=== PATIENT | female | born 1960 | race African-American/Black ===

== ENCOUNTER 2018-04-02 17:34 | Emergency (ER) | payer OTHER ==
[~2018-04-02] VITALS: Ht 157.5 cm; Wt 81.6 kg
[~2018-04-02 17:34] MED LIST: ALPR0.25 PO; ASPI-630 PO; HYDR-971 PO
[2018-04-02 18:29] LABS: BILIRUBIN,URINE NEGATIVE (NEG); CLARITY,URINE CLEAR; COLOR,URINE YELLOW; NITRITE,URINE NEGATIVE (NEG); PH,URINE 5.5; PROTEIN,URINE NEGATIVE (NEG-TRACE); UROBILINOGEN,URINE 0.2 mg/dL (0.2 mg/dL)
[2018-04-02] MEDS ORDERED: IV NORMAL SALINE 1000ML BAG 1,000 ML IV ONE (18:30)
[2018-04-02] MEDS ORDERED: DICYCLOMINE HCL 10 MG CAPSULE PO ONE (18:30)
[2018-04-02] MEDS ORDERED: ONDANSETRON PF 4 MG/2 ML VIAL. IV ONE (18:30)
[2018-04-02] MEDS ORDERED: KETOROLAC 30 MG/ML VIAL. IV ONE (18:30)
--- NOTE | 2018-04-02 18:32 | PHYS DOC ---
Past Medical History Past Medical History: Anxiety Past Surgical History: Other Additional Past Surgical Histo: DnC Alcohol Use: None Drug Use: None Adult General Chief Complaint Chief Complaint: ABDOMINAL PAIN HPI HPI Patient is a 57 year old female who presents with 6-10 out of 10 generalized abdominal pain described as cramping that has been going on intermittently with nausea vomiting and diarrhea for the last 1 week. Patient denies any fever. Denies any hematemesis or melena. Review of Systems Review of Systems Constitutional: Denies fever or chills [] Eyes: Denies change in visual acuity, redness, or eye pain [] HENT: Denies nasal congestion or sore throat [] Respiratory: Denies cough or shortness of breath [] Cardiovascular: No additional information not addressed in HPI [] GI: Reports generalized abdominal pain with nausea vomiting and diarrhea : Denies dysuria or hematuria [] Musculoskeletal: Denies back pain or joint pain [] Integument: Denies rash or skin lesions [] Neurologic: Denies headache, focal weakness or sensory changes [] All other systems were reviewed and found to be within normal limits, except as documented in this note. Current Medications Current Medications Current Medications Medications (Trade) Dose Ordered Sig/Willy Start Time Stop Time Status Last Admin Dose Admin Dicyclomine HCl (Bentyl) 20 mg 1X ONCE 04/02/18 18:30 04/02/18 18:31 DC 04/02/18 19:20 20 MG Iohexol (Omnipaque 300 Mg/ml) 75 ml 1X ONCE 04/02/18 19:15 04/02/18 19:16 UNV Ketorolac Tromethamine (Toradol 30mg Vial) 30 mg 1X ONCE 04/02/18 18:30 04/02/18 18:31 DC 04/02/18 19:20 30 MG Ondansetron HCl (Zofran) 4 mg 1X ONCE 04/02/18 18:30 04/02/18 18:31 DC 04/02/18 19:20 4 MG Sodium Chloride 1,000 ml @ 1,000 mls/hr 1X ONCE 04/02/18 18:30 04/02/18 19:29 DC 04/02/18 19:21 1,000 MLS/HR Allergies Allergies Allergies Coded Allergies Type Severity Reaction Last Updated Verified fish derived Allergy Severe Anaphylaxis 07/01/14 Yes shellfish derived Allergy Severe Anaphylaxis 07/01/14 Yes Penicillins Allergy Mild Rash 09/03/13 Yes Physical Exam Physical Exam Constitutional: Well developed, well nourished, no acute distress, non-toxic appearance. [] HENT: Normocephalic, atraumatic, bilateral external ears normal, oropharynx moist, no oral exudates, nose normal. [] Eyes: PERRLA, EOMI, conjunctiva normal, no discharge. [] Neck: Normal range of motion, no tenderness, supple, no stridor. [] Cardiovascular:Heart rate regular rhythm, no murmur [] Lungs & Thorax: Bilateral breath sounds clear to auscultation [] Abdomen: Bowel sounds normal, soft, no tenderness, no masses, no pulsatile masses. [] Skin: Warm, dry, no erythema, no rash. [] Back: No tenderness, no CVA tenderness. [] Extremities: No tenderness, no cyanosis, no clubbing, ROM intact, no edema. [] Neurologic: Alert and oriented X 3, normal motor function, normal sensory function, no focal deficits noted. [] Psychologic: Affect normal, judgement normal, mood normal. [] Current Patient Data Vital Signs Vital Signs Date Time Temp Pulse Resp B/P (MAP) Pulse Ox O2 Delivery O2 Flow Rate FiO2 04/02/18 18:10 97.4 68 20 135/65 (88) 98 Room Air 97.4 Lab Values Laboratory Tests Test 04/02/18 18:16 04/02/18 18:30 Urine Collection Type Void Urine Color Yellow Urine Clarity Clear Urine pH 5.5 Urine Specific [place] 1.020 Urine Protein Negative mg/dL (NEG-TRACE) Urine Glucose (UA) Negative mg/dL (NEG) Urine Ketones (Stick) Negative mg/dL (NEG) Urine Blood Negative (NEG) Urine Nitrite Negative (NEG) Urine Bilirubin Negative (NEG) Urine Urobilinogen Dipstick 0.2 mg/dL (0.2 mg/dL) Urine Leukocyte Esterase Negative (NEG) Urine RBC Occ /HPF (0-2) Urine WBC Occ /HPF (0-4) Urine Squamous Epithelial Cells Mod /LPF Urine Bacteria Few /HPF (0-FEW) Urine Mucus Mod /LPF White Blood Count 6.6 x10^3/uL (4.0-11.0) Red Blood Count 5.10 x10^6/uL (3.50-5.40) Hemoglobin 11.8 g/dL (12.0-15.5) L Hematocrit 36.3 % (36.0-47.0) Mean Corpuscular Volume 71 fL (79-100) L Mean Corpuscular Hemoglobin 23 pg (25-35) L Mean Corpuscular Hemoglobin Concent 33 g/dL (31-37) Red Cell Distribution Width 16.2 % (11.5-14.5) H Platelet Count 244 x10^3/uL (140-400) Neutrophils (%) (Auto) 38 % (31-73) Lymphocytes (%) (Auto) 50 % (24-48) H Monocytes (%) (Auto) 7 % (0-9) Eosinophils (%) (Auto) 4 % (0-3) H Basophils (%) (Auto) 1 % (0-3) Neutrophils # (Auto) 2.5 x10^3uL (1.8-7.7) Lymphocytes # (Auto) 3.3 x10^3/uL (1.0-4.8) Monocytes # (Auto) 0.5 x10^3/uL (0.0-1.1) Eosinophils # (Auto) 0.3 x10^3/uL (0.0-0.7) Basophils # (Auto) 0.1 x10^3/uL (0.0-0.2) Platelet Estimate Adequate (ADEQUATE) Anisocytosis Slight Microcytosis Slight Sodium Level 143 mmol/L (136-145) Potassium Level 3.7 mmol/L (3.5-5.1) Chloride Level 105 mmol/L (98-107) Carbon Dioxide Level 29 mmol/L (21-32) Anion Gap 9 (6-14) Blood Urea Nitrogen 12 mg/dL (7-20) Creatinine 0.9 mg/dL (0.6-1.0) Estimated GFR (Cockcroft-Gault) 77.5 BUN/Creatinine Ratio 13 (6-20) Glucose Level 97 mg/dL (70-99) Calcium Level 9.0 mg/dL (8.5-10.1) Total Bilirubin 0.8 mg/dL (0.2-1.0) Aspartate Amino Transferase (AST) 15 U/L (15-37) Alanine Aminotransferase (ALT) 16 U/L (14-59) Alkaline Phosphatase 82 U/L (46-116) Total Protein 7.5 g/dL (6.4-8.2) Albumin 3.6 g/dL (3.4-5.0) Albumin/Globulin Ratio 0.9 (1.0-1.7) L Lipase 73 U/L (73-393) Laboratory Tests 04/02/18 18:30 Laboratory Tests 04/02/18 18:30 EKG EKG [] Radiology/Procedures Radiology/Procedures []PROCEDURE: CT ABDOMEN PELVIS WO CONTRAST CT scan of the abdomen and pelvis without contrast 04/02/2018 CLINICAL HISTORY: Mid abdominal pain with nausea and diarrhea for one week. One or more of the following individualized dose reduction techniques were utilized for this study: 1. Automated exposure control. 2. Adjustment of the mA and/or kV according to patient size. 3. Use of iterative reconstruction technique. FINDINGS: Images through the lung bases are within normal limits. The liver, spleen, pancreas, adrenal glands and both kidneys are within normal limits. The abdominal aorta tapers normally. Mild atherosclerotic calcification abdominal aorta is seen. The gallbladder is slightly contracted. No free fluid or free air is seen within the abdomen. There is no evidence of bowel obstruction. The appendix is well-visualized and is within normal limits. Images through the pelvis demonstrate the urinary bladder to be contracted. Calcifications are seen within the pelvis consistent with phleboliths. No free fluid is seen. Degenerative changes are seen involving the lower thoracic and throughout the lumbar spine and both hips. IMPRESSION: No acute abnormality is seen. Electronically signed by: Dayday Coulter MD (04/02/2018 8:17 PM) [facility] DICTATED and SIGNED BY: DAYDAY COULTER MD DATE: 04/02/182009 Course & Med Decision Making Course & Med Decision Making Pertinent Labs and Imaging studies reviewed. (See chart for details) This is a 57-year-old female patient presented to the ED today with generalized abdominal pain nausea vomiting and diarrhea for one week. Patient's labs are negative for any acute findings, CT of the abdomen and pelvic is negative for any acute findings. Patient is not febrile. She was given a GI doctor for follow -up as an outpatient. Discharged with acyclovir. She states she feels much better if the ED. In the ED she was given Zofran, a liter of fluid, Protonix and dicyclomine. Dragon Disclaimer Dragon Disclaimer This electronic medical record was generated, in whole or in part, using a voice recognition dictation system. Departure Departure Impression: Primary Impression: Abdominal pain Additional Impression: Vomiting and diarrhea Disposition: HOME, SELF-CARE Condition: STABLE Referrals: JESICA DE JESUS MD (PCP) SOL CANDELARIO MD follow up in 1 week Patient Instructions: Diarrhea, Nausea and Vomiting, [id number] Additional Instructions: You were evaluated in the emergency room for nausea vomiting diarrhea with abdominal pain. We could not find any acute cause for your symptoms. We provided you a GI doctor. Contact the office and follow-up with them as soon as possible. Scripts Ondansetron (ZOFRAN ODT) 4 Mg Tab.rapdis 1 TAB SL Q8HRS, #15 TAB Prov: BARBARA HAMEED APRN 04/02/18 Dicyclomine Hcl (DICYCLOMINE HCL) 20 Mg Tablet 1 TAB PO TID, #30 TAB 1 Refill Prov: BARBARA HAMEED APRN 04/02/18 Problem Qualifiers Primary Impression: Abdominal pain Abdominal location: unspecified location Qualified Codes: R10.9 - Unspecified abdominal pain BARBARA HAMEED APRN Apr 02, 2018 18:32
[2018-04-02 18:40] LABS: BASO # 0.1 x10^3/uL (0.0-0.2); BASO % 1 % (0-3); EOS # 0.3 x10^3/uL (0.0-0.7); EOS % 4 % (0-3); HEMATOCRIT 36.3 % (36.0-47.0); HEMOGLOBIN 11.8 g/dL (12.0-15.5); LYMPH # 3.3 x10^3/uL (1.0-4.8); LYMPH % 50 % (24-48); MEAN CORPUSCULAR HEMOGLOBIN 23 pg (25-35); MEAN CORPUSCULAR HGB CONC 33 g/dL (31-37); MEAN CORPUSCULAR VOLUME 71 fL (79-100); MONO # 0.5 x10^3/uL (0.0-1.1); MONO % 7 % (0-9); NEUT # 2.5 x10^3uL (1.8-7.7); NEUT % 38 % (31-73); PLATELET COUNT 244 x10^3/uL (140-400); RED CELL DISTRIBUTION WIDTH 16.2 % (11.5-14.5); WHITE BLOOD COUNT 6.6 x10^3/uL (4.0-11.0)
[2018-04-02 18:53] LABS: CREATININE 0.9 mg/dL (0.6-1.0); GFR 77.5; POTASSIUM 3.7 mmol/L (3.5-5.1)
[2018-04-02 18:59] VITALS: BP 145/77
[2018-04-02 18:59] LABS: ALBUMIN 3.6 g/dL (3.4-5.0); ALBUMIN/GLOBULIN RATIO 0.9 (1.0-1.7); TOTAL BILIRUBIN 0.8 mg/dL (0.2-1.0); TOTAL PROTEIN 7.5 g/dL (6.4-8.2)
[2018-04-02 19:00] LABS: BACTERIA,URINE FEW /HPF (0-FEW); RBC,URINE OCC /HPF (0-2); SQUAMOUS EPITHELIAL CELL,UR MOD /LPF; WBC,URINE OCC /HPF (0-4)
[2018-04-02] MEDS ORDERED: IOHEXOL 300 MG/ML 100ML VIAL. IV ONE (19:15)
[2018-04-02 19:27] LABS: MICROCYTOSIS SLIGHT; PLT ESTIMATE ADEQUATE (ADEQUATE)
[2018-04-02 19:28] LABS: ANISOCYTOSIS SLIGHT
--- NOTE | 2018-04-02 20:21 | RAD ---
CT scan of the abdomen and pelvis without contrast 04/02/2018 CLINICAL HISTORY: Mid abdominal pain with nausea and diarrhea for one week. One or more of the following individualized dose reduction techniques were utilized for this study: 1. Automated exposure control. 2. Adjustment of the mA and/or kV according to patient size. 3. Use of iterative reconstruction technique. FINDINGS: Images through the lung bases are within normal limits. The liver, spleen, pancreas, adrenal glands and both kidneys are within normal limits. The abdominal aorta tapers normally. Mild atherosclerotic calcification abdominal aorta is seen. The gallbladder is slightly contracted. No free fluid or free air is seen within the abdomen. There is no evidence of bowel obstruction. The appendix is well-visualized and is within normal limits. Images through the pelvis demonstrate the urinary bladder to be contracted. Calcifications are seen within the pelvis consistent with phleboliths. No free fluid is seen. Degenerative changes are seen involving the lower thoracic and throughout the lumbar spine and both hips. IMPRESSION: No acute abnormality is seen. Electronically signed by: Dayday Coulter MD (04/02/2018 8:17 PM) [facility]
[2018-04-02] MEDS ORDERED: DICY20TA3 PO (21:01)
[2018-04-02] MEDS ORDERED: ONDA4TAB10 SL (21:02)
== END 2018-04-02 21:17 | disposition home or self-care (01) ==
LOC: ER 17:34
DX: R10.84 Generalized abdominal pain (principal); R11.2 Nausea with vomiting, unspecified; R19.7 Diarrhea, unspecified; F41.9 Anxiety disorder, unspecified; Z88.0 Allergy status to penicillin; Z91.013 Allergy to seafood
CPT/HCPCS: 36415; 74176; 80053; 81001; 83690; 85025; 96361; 96374; 96375; 99285; J1885; J2405; J7030; 99284

== ENCOUNTER 2018-04-20 22:01 | Emergency (ER) | payer OTHER ==
[~2018-04-20] VITALS: Ht 157.5 cm; Wt 77.1 kg
[~2018-04-20 22:01] MED LIST changes: +DICY20TA3 PO; +ONDA4TAB10 SL
[2018-04-20] MEDS ORDERED: HYDROcodone/APAP 5/325MG 1 TAB TABLET PO ONE (23:00)
[2018-04-20] MEDS ORDERED: ASPIRIN 325 MG TABLET PO ONE (23:00)
[2018-04-20] MEDS ORDERED: diazePAM 5 MG TABLET PO ONE (23:00)
--- NOTE | 2018-04-20 23:27 | RAD ---
INDICATION: RT ARM HEAVINESS, NO PRIORS, HX DENIES COMPARISON: None. TECHNIQUE: Axial CT images obtained through the head without intravenous contrast. One or more of the following individualized dose reduction techniques were utilized for this examination: 1. Automated exposure control; 2. Adjustment of the mA and/or kV according to patient size; 3. Use of iterative reconstruction technique. FINDINGS: No intracranial hemorrhage. No midline shift. Basal cisterns patent. Ventricles and sulci are unremarkable. No acute osseous abnormality. Orbits and paranasal sinuses unremarkable. IMPRESSION: 1. No acute intracranial hemorrhage. 2. Scattered foci of low-attenuation white matter. Nonspecific but can be seen with chronic small vessel ischemic disease. If there is high clinical concern for acute etiology MRI could better assess acuity. Electronically signed by: Min Linder MD (04/20/2018 11:24 PM) [facility]
[2018-04-20 23:38] LABS: BILIRUBIN,URINE NEGATIVE (NEG); CLARITY,URINE CLEAR; COLOR,URINE YELLOW; NITRITE,URINE NEGATIVE (NEG); PROTEIN,URINE NEGATIVE (NEG-TRACE)
--- NOTE | 2018-04-20 23:40 | PHYS DOC ---
Past Medical History Past Medical History: Anxiety, GERD, P.U.D., Other Additional Past Medical Histor: DDD Past Surgical History: Other Additional Past Surgical Histo: D&C Alcohol Use: Occasionally Drug Use: None Adult General Chief Complaint Chief Complaint: UPPER EXTREMITY PAIN HPI HPI Patient is a 57 year old female with history of anxiety who presents today complaining of 10 out of 10 right shoulder pain radiating to the right upper extremity as well as neck that began at 3 PM. Patient describes the pain as sharp and constant. She states the pain is worse when she tries to move her right arm above her shoulder as well as on certain movements of the neck. Patient denies any known injury. Patient denies taking anything to relieve her pain. Denies any chest pain or shortness of breath. Review of Systems Review of Systems Constitutional: Denies fever or chills [] Eyes: Denies change in visual acuity, redness, or eye pain [] HENT: Denies nasal congestion or sore throat [] Respiratory: Denies cough or shortness of breath [] Cardiovascular: No additional information not addressed in HPI [] GI: Denies abdominal pain, nausea, vomiting, bloody stools or diarrhea [] : Denies dysuria or hematuria [] Musculoskeletal: Reports right shoulder pain Integument: Denies rash or skin lesions [] Neurologic: Denies headache, focal weakness or sensory changes [] All other systems were reviewed and found to be within normal limits, except as documented in this note. Current Medications Current Medications Current Medications Medications (Trade) Dose Ordered Sig/Willy Start Time Stop Time Status Last Admin Dose Admin Acetaminophen/ Hydrocodone Bitart (Lortab 5/325) 1 tab 1X ONCE 04/20/18 23:00 04/20/18 23:01 DC 04/20/18 23:41 1 TAB Aspirin (Yash Aspirin) 325 mg 1X ONCE 04/20/18 23:00 04/20/18 23:01 DC 04/20/18 23:41 325 MG Diazepam (Valium) 5 mg 1X ONCE 04/20/18 23:00 04/20/18 23:01 DC 04/20/18 23:42 5 MG Allergies Allergies Allergies Coded Allergies Type Severity Reaction Last Updated Verified fish derived Allergy Severe Anaphylaxis 07/01/14 Yes shellfish derived Allergy Severe Anaphylaxis 07/01/14 Yes Penicillins Allergy Mild Rash 3/5/14 Yes Physical Exam Physical Exam Constitutional: Well developed, well nourished, no acute distress, non-toxic appearance. [] HENT: Normocephalic, atraumatic, bilateral external ears normal, oropharynx moist, no oral exudates, nose normal. [] Eyes: PERRLA, EOMI, conjunctiva normal, no discharge. [] Neck: Normal range of motion, no tenderness, supple, no stridor. [] Cardiovascular:Heart rate regular rhythm, no murmur [] Lungs & Thorax: Bilateral breath sounds clear to auscultation [] Abdomen: Bowel sounds normal, soft, no tenderness, no masses, no pulsatile masses. [] Skin: Warm, dry, no erythema, no rash. [] Back: No tenderness, no CVA tenderness. [] Extremities: Right shoulder with no obvious deformity. Reproducible pain to the shoulder on range of motion especially abduction. Adequate radial, medial, ulnar sensation to the right upper extremity. +2 right radial pulse. Cap refill less than 2 seconds the right fingers. Neurologic: Alert and oriented X 3, normal motor function, normal sensory function, no focal deficits noted. [] Psychologic: Affect normal, judgement normal, mood normal. [] Current Patient Data Vital Signs Vital Signs Date Time Temp Pulse Resp B/P (MAP) Pulse Ox O2 Delivery O2 Flow Rate FiO2 04/21/18 00:20 98.0 84 18 118/76 (90) 98 Room Air 98.0 Lab Values Laboratory Tests Test 04/20/18 23:25 04/20/18 23:31 04/20/18 23:35 Urine Collection Type Unknown Urine Color Yellow Urine Clarity Clear Urine pH 6.0 Urine Specific [place] 1.025 Urine Protein Negative mg/dL (NEG-TRACE) Urine Glucose (UA) Negative mg/dL (NEG) Urine Ketones (Stick) Negative mg/dL (NEG) Urine Blood Negative (NEG) Urine Nitrite Negative (NEG) Urine Bilirubin Negative (NEG) Urine Urobilinogen Dipstick 1.0 mg/dL (0.2 mg/dL) Urine Leukocyte Esterase Negative (NEG) Urine RBC Rare /HPF (0-2) Urine WBC Rare /HPF (0-4) Urine Squamous Epithelial Cells Mod /LPF Urine Bacteria Few /HPF (0-FEW) Urine Mucus Mod /LPF Urine Opiates Screen Neg (NEG) Urine Methadone Screen Neg (NEG) Urine Barbiturates Neg (NEG) Urine Phencyclidine Screen Neg (NEG) Urine Amphetamine/Methamphetamine Neg (NEG) Urine Benzodiazepines Screen Neg (NEG) Urine Cocaine Screen Neg (NEG) Urine Cannabinoids Screen Neg (NEG) Urine Ethyl Alcohol Neg (NEG) POC Troponin I 0.01 ng/ml (<0.08) POC Hemoglobin 12.9 g/dL (12-15) POC Hematocrit 38 % (36-40) POC Sodium 143 mmol/L (135-145) POC Potassium 4.0 mmol/L (3.5-5.0) POC Chloride 105 mmol/L (98-110) POC Total CO2 26 mmol/L (23-32) Anion Gap 17 mmol/L (6-14) H POC Blood Urea Nitrogen 19 mg/dL (8-26) POC Creatinine 1.0 mg/dL (0.5-1.4) Glucose Level 104 mg/dL (70-99) H POC Ionized Calcium ([place]) 1.15 mmol/L (1.13-1.32) Laboratory Tests 04/20/18 23:35 EKG EKG 22:[address] Lora sinus rhythm heart rate 67 Radiology/Procedures Radiology/Procedures []PROCEDURE: CT HEAD WO CONTRAST INDICATION: RT ARM HEAVINESS, NO PRIORS, HX DENIES COMPARISON: None. TECHNIQUE: Axial CT images obtained through the head without intravenous contrast. One or more of the following individualized dose reduction techniques were utilized for this examination: 1. Automated exposure control; 2. Adjustment of the mA and/or kV according to patient size; 3. Use of iterative reconstruction technique. FINDINGS: No intracranial hemorrhage. No midline shift. Basal cisterns patent. Ventricles and sulci are unremarkable. No acute osseous abnormality. Orbits and paranasal sinuses unremarkable. IMPRESSION: 1. No acute intracranial hemorrhage. 2. Scattered foci of low-attenuation white matter. Nonspecific but can be seen with chronic small vessel ischemic disease. If there is high clinical concern for acute etiology MRI could better assess acuity. Electronically signed by: Fina Fernandez MD (04/20/2018 11:24 PM) [facility] DICTATED and SIGNED BY: FINA FERNANDEZ MD DATE: 04/20/18 300 Course & Med Decision Making Course & Med Decision Making Pertinent Labs and Imaging studies reviewed. (See chart for details) This is a 57-year-old female patient presenting to the ED today with right shoulder pain, no known injury. Parent is very reproducible on range of motion. Cardiac workup was done to rule out any cardiac etiology. Troponin and chem 8 and negative for any acute findings, EKG was negative for any acute findings. CT of the head is negative for any acute findings, chest x-ray, right shoulder x -rays and cervical spine x-rays interpreted by Dr. Ramirez and negative for any acute findings. Sling provided for comfort in the ED. Discharged with Medrol Dosepak, diclofenac and cyclobenzaprine. Ice elevation encouraged. Follow -up with orthopedic doctor next week if symptoms persist. Vitals are stable upon discharge. Staff Physician Addendum: I was working in the ER during the course of this patient's visit. I was available for consultation as needed, but I was not directly involved in the care of this patient. Dragon Disclaimer Dragon Disclaimer This electronic medical record was generated, in whole or in part, using a voice recognition dictation system. Departure Departure Impression: Primary Impression: Shoulder tendinitis Disposition: HOME, SELF-CARE Condition: STABLE Referrals: JESICA DE JESUS MD (PCP) ROSALINE WU MD follow up next week Patient Instructions: Tendinitis, [id number] Additional Instructions: You were evaluated in the emergency room for right shoulder pain. Take the prescribed medications as ordered. Try to ice and elevate the extremity. Follow up with your own primary care doctor orthopedic doctor in the course of next week if symptoms persist Scripts Diclofenac Sodium (DICLOFENAC SODIUM) 50 Mg Tablet. 1 TAB PO BID, #20 TAB 0 Refills Prov: BARBARA HAMEED APRN 04/21/18 Cyclobenzaprine Hcl (CYCLOBENZAPRINE HCL) 10 Mg Tablet 1 TAB PO TID, #30 TAB Prov: BARBARA HAMEED APRN 04/21/18 Methylprednisolone (MEDROL) 4 Mg Tab.ds.pk 1 PKG PO UD, #1 PKG Prov: BARBARA HAMEED APRN 04/21/18 Problem Qualifiers Primary Impression: Shoulder tendinitis Laterality: right Qualified Codes: M75.81 - Other shoulder lesions, right shoulder BARBARA HAMEED APRN Apr 20, 2018 23:40 HUY RAMIREZ MD Apr 21, 2018 03:40
[2018-04-20 23:45] LABS: BACTERIA,URINE FEW /HPF (0-FEW); BARBITURATES NEG (NEG); BENZODIAZEPINES NEG (NEG); CANNABINOIDS NEG (NEG); COCAINE NEG (NEG); METHADONE NEG (NEG); OPIATES NEG (NEG); PHENCYCLIDINE NEG (NEG); RBC,URINE RARE /HPF (0-2); WBC,URINE RARE /HPF (0-4)
[2018-04-20 23:46] LABS: AMPHETAMINE/METHAMPHETAMINE NEG (NEG); SQUAMOUS EPITHELIAL CELL,UR MOD /LPF
[2018-04-20 23:47] LABS: HEMOGLOBIN ISTAT 12.9 g/dL (12-15); ION CA ISTAT 1.15 mmol/L (1.13-1.32)
[2018-04-21] MEDS ORDERED: DICL50TA4 PO (00:08)
[2018-04-21] MEDS ORDERED: METH4TAB2 PO (00:08)
[2018-04-21] MEDS ORDERED: CYCL10TA2 PO (00:08)
[2018-04-21 00:20] VITALS: BP 118/76
--- NOTE | 2018-04-21 08:09 | EKG ---
[facility] [address] [place] [address] Test Date: 2018-04-20 Test Time: 22:38:36 Pat Name: NEHEMIAH LEE Department: Room: Gender: F [employer]: : [id number] Requested By: BARBARA HAMEED Order Number: [id number] Reading MD: Shimon Bell MD Measurements Intervals [place] Rate: 66 P: 41 NE: 190 QRS: -18 QRSD: 82 T: 10 QT: 408 QTc: 434 Interpretive Statements SINUS RHYTHM Electronically Signed On 04-21-2018 9:50:57 CDT by Shimon Bell MD
--- NOTE | 2018-04-21 08:26 | RAD ---
SHOULDER 2+V RIGHT (AP internal and external rotation, transscapular Y) INDICATION: shoulder, neck and chest pain, no injury COMPARISON: None. FINDINGS: No acute fracture or malalignment. Mild acromioclavicular and glenohumeral joint arthrosis. Bony mineralization is normal for the patient's age. No significant soft tissue abnormality. No radiopaque foreign body. IMPRESSION: 1. No acute fracture or malalignment. 2. Mild acromioclavicular and glenohumeral joint arthrosis. Electronically signed by: Stefan Bell MD (04/21/2018 8:22 AM) [facility]
--- NOTE | 2018-04-21 08:27 | RAD ---
PORTABLE CHEST 1V INDICATION: shoulder, neck and chest pain, no injury COMPARISON: Chest radiograph dated 11/08/2015 FINDINGS: Normal lung volume. No focal consolidation. Normal pulmonary vasculature. No pleural effusion or pneumothorax. The cardiomediastinal silhouette and great vessels are normal. No acute osseous abnormality. IMPRESSION: No acute cardiopulmonary process. Electronically signed by: Stefan Bell MD (04/21/2018 8:23 AM) [facility]
--- NOTE | 2018-04-21 08:28 | RAD ---
CERVICAL SPINE 2-3V (AP, lateral, open-mouth odontoid INDICATION: shoulder, neck and chest pain, no injury COMPARISON: None. FINDINGS: The cervical spine is visualized to the level of the cervical thoracic junction. Straightening of the normal cervical lordosis. No listhesis. Vertebral body heights are maintained. No evidence of acute fracture. Mild multilevel degenerative changes of the visualized spine. No significant soft tissue abnormality. IMPRESSION: 1. No acute cervical fracture or malalignment. 2. Mild multilevel degenerative changes of the visualized spine. Electronically signed by: Stefan Blel MD (04/21/2018 8:25 AM) [facility]
[2018-04-30] MEDS ORDERED: TRAM50TA PO (09:34)
[2018-04-30] MEDS ORDERED: ASPI81TA50 PO (09:34)
[2018-04-30] MEDS ORDERED: OXYC-323 PO (09:34)
[2018-04-30] MEDS ORDERED: FLUT16SP NS (09:36)
== END 2018-04-21 00:20 | disposition home or self-care (01) ==
LOC: ER 22:01
DX: M75.81 Other shoulder lesions, right shoulder (principal); M54.2 Cervicalgia; K21.9 Gastro-esophageal reflux disease without esophagitis; Z88.0 Allergy status to penicillin; Z91.013 Allergy to seafood
CPT/HCPCS: 70450; 71045; 72040; 73030; 80047; 80307; 81001; 84484; 85014; 85018; 93005; 99285-25; G0479

== ENCOUNTER → 2018-04-30 | Day surgery (SDC) | payer OTHER ==
[~2018-04-30] MED LIST changes: +ASPI81TA50 PO; +CYCL10TA2 PO; +DICL50TA4 PO; +FLUT16SP NS; +HYDROmorphone 2 MG/ML VIAL IV PRN; +IV RINGERS,LACTATED 1000ML 1,000 ML IV SCH; +LIDOCAINE 1% PF 2 ML VIAL. ID PRN; +METH4TAB2 PO; +MORPHINE SULFATE 2 MG/ML VIAL. IV PRN; +ONDANSETRON PF 4 MG/2 ML VIAL. IV PRN; +OXYC-323 PO; +PROCHLORPERAZINE 10 MG/2 ML VIAL. IV PRN; +PROPOFOL 40 ML IV ONE; +TRAM50TA PO; +fentaNYL PF VIAL 100 MCG/2 ML VIAL IV PRN
--- NOTE | 2018-04-30 09:55 | PDOC1 ---
HISTORY & PHYSICAL H&P Carmel Lincoln 1960 04/10/2018 10:30 AM 07/02 [employer] OUR PATIENTS COME FIRST [address] [place] [address]. [phone] Patient: Carmel Lincoln Date of : 1960 Date: 04/10/2018 10:30 AM Visit Type: Consult This 57 year old female presents for Screening colonoscopy. History of Present Illness: 1. Screening colonoscopy No prior screening. Denies risk factors. Pertinent negatives include abdominal pain, change in bowel habits, change in stool caliber, constipation, decreased appetite, diarrhea, melena, nausea, rectal bleeding, vomiting, weight gain and weight loss. Additional information: No family history of colon cancer , No family history of Crohn's/colitis, No NSAID/ASA use and Last colonoscopy 2004. INTAKE COMMENTS: Intake Comments: patient states she is here for a colonoscopy PROBLEM LIST: Problem Description Onset Date Chronic Clinical Status Notes Allergy to seafood 09/03/2013 Y Mapped from [facility] Chronic Conditions table on by the ICD9 to SNOMED Bulk Mapping Utility. 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 Onset date 09/03/2013; last addressed on 2013. 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 Family History (Detailed) Social History: (Detailed) The patient is right-handed. Preferred language is Azerbaijani. Language spoken at home is Azerbaijani. Born in [facility]. EDUCATION/EMPLOYMENT/OCCUPATION The patient has a(n) high school education. Employment History Status Retired Restrictions disabled MARITAL STATUS/FAMILY/SOCIAL SUPPORT Currently . CHILDREN Has children: 1 son(s). 2 daughter(s). Tobacco use status: Never smoked tobacco. Smoking status: Never smoker. TOBACCO CESSATION INFORMATION Date Counseled By Order Status Description Code Tobacco Cessation Information 03/25/2012 Isamar Poole Tobacco cessation counseling completed Tobacco cessation counseling 09/26/2012 Isamar Poole Tobacco cessation counseling completed Tobacco cessation counseling 01/06/2014 Blayne Linder Tobacco cessation counseling completed Tobacco cessation counseling ALCOHOL There is a history of alcohol use. Type: Wine. 1 glass consumed occasionally. Last alcoholic drink was one year ago. CAFFEINE The patient does not use caffeine. LIFESTYLE Moderate activity level. Never a health club member. Never exercises. The patient reports there are no animals in the home. SLEEP PATTERNS Patient has no changes to sleep patterns. ORTHODOX/SPIRITUAL Practices confucianism. Has spiritual beliefs. Anabaptism/spirituality is an important part of the patient's life. HOME ENVIRONMENT/SAFETY The home has smoke detectors. Carbon monoxide detector at home. Home heating is gas. There is not a pool/spa at home. The home does not have radon present. Uses seat belts. EXPERIENCE Patient has no experience. Medications (active prior to today) Medication Name Sig Description Start Date Stop Date Refilled Rx Elsewhere Aspir-81 81 mg Tab take 1 tablet (81MG) by oral route every day 12/25/2011 N triamcinolone acetonide 0.1 % lotion apply by topical route 2 times every day a thin layer to the affected area(s) 10/08/2013 N ibuprofen 800 mg tablet take 1 tablet by oral route 3 times every day with food 03/01/2015 N iron 325 mg (65 mg iron) tablet take 1 tablet by oral route every day 201507/08/2015 N hydroxyzine HCl 10 mg tablet tid 07/08/2015 07/08/2015 N Fioricet 50 mg-300 mg-40 mg capsule take 1 capsule by oral route every 8 hours as needed not to exceed 6 capsules per 24hrs 12/20/2016 N EpiPen 2-Daryl 0.3 mg/0.3 mL injection, auto-injector inject 0.3 milliliter by intramuscular route once as needed for anaphylaxis 07/10/2017 07/10/2017 N Claritin 10 mg tablet take 1 tablet by oral route every day 11/05/20172017 N fluticasone 50 mcg/actuation nasal spray,suspension spray 1 spray by intranasal route 2 times every day in each nostril 11/05/2017 11/05/2017 N Xanax 0.25 mg tablet take 1 tablet by oral route every day 11/15/20172017 N prednisone 50 mg tablet take 1 tablet by oral route every day 02/26/2018 N sulfacetamide sodium 10 % eye drops instill 1 drop by ophthalmic route every 2 - 3 hours into affected eye(s) during the day and less frequently at night 02/26 N Medication Reconciliation Medications reconciled today. Medication Reviewed Adherence Medication Name Sig Desc Elsewhere Status taking as directed Aspir-81 81 mg Tab take 1 tablet (81MG) by oral route every day N Verified taking as directed triamcinolone acetonide 0.1 % lotion apply by topical route 2 times every day a thin layer to the affected area(s) N Verified taking as directed ibuprofen 800 mg tablet take 1 tablet by oral route 3 times every day with food N Verified taking as directed iron 325 mg (65 mg iron) tablet take 1 tablet by oral route every day N Verified taking as directed hydroxyzine HCl 10 mg tablet tid N Verified taking as directed EpiPen 2-Daryl 0.3 mg/0.3 mL injection, auto-injector inject 0.3 milliliter by intramuscular route once as needed for anaphylaxis N Verified taking as directed Fioricet 50 mg-300 mg-40 mg capsule take 1 capsule by oral route every 8 hours as needed not to exceed 6 capsules per 24hrs N Verified taking as directed Claritin 10 mg tablet take 1 tablet by oral route every day N Verified taking as directed fluticasone 50 mcg/actuation nasal spray,suspension spray 1 spray by intranasal route 2 times every day in each nostril N Verified taking as directed Xanax 0.25 mg tablet take 1 tablet by oral route every day N Verified taking as directed prednisone 50 mg tablet take 1 tablet by oral route every day N Verified taking as directed sulfacetamide sodium 10 % eye drops instill 1 drop by ophthalmic route every 2 - 3 hours into affected eye(s) during the day and less frequently at night N Verified Medications (Added, Continued or Stopped today) Start Date Medication Directions PRN Status PRN Reason Instruction Stop Date 12/25/2011 Aspir-81 81 mg Tab take 1 tablet (81MG) by oral route every day N 11/05/2017 Claritin 10 mg tablet take 1 tablet by oral route every day N 07/10/2017 EpiPen 2-Daryl 0.3 mg/0.3 mL injection, auto-injector inject 0.3 milliliter by intramuscular route once as needed for anaphylaxis N 12/20/2016 Fioricet 50 mg-300 mg-40 mg capsule take 1 capsule by oral route every 8 hours as needed not to exceed 6 capsules per 24hrs N 11/05/2017 fluticasone 50 mcg/actuation nasal spray,suspension spray 1 spray by intranasal route 2 times every day in each nostril N 07/08/2015 hydroxyzine HCl 10 mg tablet tid N 03/01/2015 ibuprofen 800 mg tablet take 1 tablet by oral route 3 times every day with food N 07/08/2015 iron 325 mg (65 mg iron) tablet take 1 tablet by oral route every day N 02/26/2018 prednisone 50 mg tablet take 1 tablet by oral route every day N 02/26/2018 sulfacetamide sodium 10 % eye drops instill 1 drop by ophthalmic route every 2 - 3 hours into affected eye(s) during the day and less frequently at night N 10/08/2013 triamcinolone acetonide 0.1 % lotion apply by topical route 2 times every day a thin layer to the affected area(s) N 11/15/2017 Xanax 0.25 mg tablet take 1 tablet by oral route every day N Allergies: Ingredient Reaction (Severity) Medication Name Comment AMOXICILLIN TRIHYDRATE pass out (moderate to severe) Amoxil PENICILLINS Review of Systems System Neg/Pos Details Constitutional Negative Chills, Fever, Malaise, Weight gain and Weight loss. ENMT Negative Sore throat. Eyes Negative Double vision. Respiratory Negative Dyspnea and Wheezing. Cardio Negative Chest pain and Irregular heartbeat/palpitations. GI Positive See HPI. GI Negative Abdominal pain, Change in bowel habits, Change in stool caliber, Constipation, Decreased appetite, Diarrhea, Melena, Nausea, See HPI, Rectal bleeding and Vomiting. Negative Dysuria and Hematuria. Endocrine Negative Cold intolerance and Heat intolerance. Psych Negative Anxiety. Integumentary Negative Hives and Rash. MS Negative Joint pain. Kennedy/Lymph Negative Easy bleeding and Easy bruising. Allergic/Immuno Negative Food allergies. Reproductive Positive The patient is post-menopausal. Vital Signs Time BP mm/Hg Pulse /min Resp /min Temp F Ht ft Ht in Ht cm Wt lb Wt kg BMI kg/ m2 BSA m2 O2 Sat% 10:46 AM 106/70 12 97.9 5.0 2.00 157.48 183.80 83.370 33.62 1.91 Measured By Time Measured by 10:46 AM Sandrine Swygert PHYSICAL EXAM: Exam Findings Details Constitutional Normal Well developed. Eyes Normal Conjunctiva - Right: Normal, Left: Normal. Sclera - Right: Normal, Left: Normal. Nasopharynx Normal Lips/teeth/gums - Normal. Neck Exam Normal Inspection - Normal. Thyroid gland - Normal. Respiratory Normal Inspection - Normal. Auscultation - Normal. Cardiovascular Normal Regular rate and rhythm. No murmurs, gallops, or rubs. Abdomen Normal Inspection - Normal. Anterior palpation - No guarding. No abdominal tenderness. No hepatic enlargement. No spleen enlargement. No hernia. No Ascites. Skin Normal Inspection - Normal. Extremity Normal No edema. Psychiatric Normal Orientation - Oriented to time, place, person & situation. Appropriate mood and affect. Assessment/Plan # Detail Type Description 1. Assessment Encounter for screening colonoscopy (Z12.11). Patient Plan schedule colonoscopy at [facility] Provider Plan Following items have been discussed with the patient if applicable. __x_Patient was advised about the liquid diet carefully. ___Diabetic medication: Do not take following medication on the preparation day - ___Insulin: Reduce or eliminate your insulin as follows- __x_Blood thinner: Do not take following blood thinner as follows- Aspirin and Ibuprofen for 48 hrs before the test. __x_Other medication: Continue all other medication on the day of preparation. ___BP medication: Take following BP meds on the day of the procedure at 5:30 AM. with just a sip of water-but do not drink lot of water because this will delay your procedure for anesthesia related issue.- Plan Orders Further diagnostic evaluations ordered today include(s) Colonoscopy , flexible; diagnostic to be performed today. She is to schedule a follow-up visit with Yevgeniy Zuluaga MD upon completion of work-up. Document Electronically signed: Yevgeniy Zuluaga MD 04/10/2018 01:00 PM Document generated by: Yevgeniy Zuluaga 04/10/2018 Logan Rodarte MD, Family Practice; Félix Lemons MD Internal Medicine; Aleena Barraza MD, Internal Medicine; Sadie Zuluaga MD Internal Medicine; Yevgeniy Zuluaga MD, Gastroenterology; Demetrius Hess MD, Rheumatology, Kamini Holguin PROGRAMMING ENGINEER ------ 04/30/18 Patient seen and examined. No change in H&P. YEVGENIY ZULUAGA MD Apr 30, 2018 09:55
[2018-04-30 11:00] VITALS: BP 118/73
== END | disposition home or self-care (01) ==
LOC: SURG 09:19
PROVIDERS: ATTEND Internal Medicine Gastroenterology
DX: Z12.11 Encounter for screening for malignant neoplasm of colon (principal); K57.30 Diverticulosis of large intestine without perforation or abscess without bleeding; F41.9 Anxiety disorder, unspecified; M17.0 Bilateral primary osteoarthritis of knee; G89.4 Chronic pain syndrome; J45.909 Unspecified asthma, uncomplicated; Z98.51 Tubal ligation status; Z72.89 Other problems related to lifestyle; Z79.82 Long term (current) use of aspirin; Z79.899 Other long term (current) drug therapy; Z88.0 Allergy status to penicillin; Z88.1 Allergy status to other antibiotic agents; Z88.8 Allergy status to other drugs, medicaments and biological substances
CPT/HCPCS: 45378; J2704

== ENCOUNTER → 2019-05-20 | Outpatient (CLI) | payer OTHER ==
[2018-04-30 11:00] VITALS: BP 118/73
[~2019-05-20] MED LIST changes: +HYDR-3164 PO; -HYDR-971 PO; -HYDROmorphone 2 MG/ML VIAL IV PRN; -IV RINGERS,LACTATED 1000ML 1,000 ML IV SCH; -LIDOCAINE 1% PF 2 ML VIAL. ID PRN; -MORPHINE SULFATE 2 MG/ML VIAL. IV PRN; -ONDANSETRON PF 4 MG/2 ML VIAL. IV PRN; -OXYC-323 PO; +OXYC1TAB15 PO; -PROCHLORPERAZINE 10 MG/2 ML VIAL. IV PRN; -PROPOFOL 40 ML IV ONE; -fentaNYL PF VIAL 100 MCG/2 ML VIAL IV PRN
--- NOTE | 2019-05-20 15:01 | KCIC ---
Bilateral diagnostic digital mammograms: Reason for examination: Bloody discharge from the right nipple lasting a few days 3 to 4 weeks ago. No longer experiencing any discharge. Comparison is made to previous studies dated 07/17/2017 and 09/28/2015. Interpretation was made with the benefit of CAD. The skin and nipples show no abnormalities. No abnormal axillary lymph nodes are seen. The breast parenchyma is heterogeneously dense. (Breast density: Category C.) There is some subtle nodularity seen centrally in the right breast. Ultrasound will follow. There are no other dominant masses, suspicious calcifications or architectural distortion. Impression: Subtle nodularity seen centrally in the right breast. Ultrasound to follow. Your patient's mammogram demonstrates that she has dense breast tissue (breast density category C or D), which could hide abnormalities, and if she has other risk factors for breast cancer that have been identified, she might benefit from supplemental screening tests that may be suggested by you as her ordering physician. Dense breast tissue, in and of itself, is a relatively common condition. Therefore, this information is not provided to cause undue concern, but rather to raise your awareness and to promote discussion with your patient regarding the presence of other risk factors, in addition to dense breast tissue. Your patient's mammography results will be sent to her. BI-RAD Category 0: Incomplete. Needs additional imaging evaluation. Right breast ultrasound: Right whole breast ultrasound including evaluation of all 4 quadrants and the retroareolar and axillary regions of the right breast was performed. There is some ductal ectasia in the retroareolar position. No intraductal lesions are identified. There is a small nodule present centrally in the breast 8 cm posterior to the nipple measuring 3.7 mm in size with benign fibrocystic appearance. No other cystic or solid lesions are seen. No abnormal appearing lymph nodes are seen in the axilla. IMPRESSION: Small 3.7 mm hypoechoic benign-appearing fibrocystic type lesion centrally in the right breast which probably corresponds to the area of mammographic concern. Recommend 6 month follow-up with right breast mammograms and ultrasound. If bloody discharge recurs and is arising from a single duct, galactography should be considered. BI-RADS Category 3: Probably Benign. "Our facility is accredited by the [employer] Mammography Program." This patient's information has been entered into a reminder system for the patient to be notified with the results of her examination and a target date for the next mammogram. Electronically signed by: Marya Arreguin MD (05/20/2019 2:58 PM) [facility]
== END | disposition home or self-care (01) ==
LOC: KCIC MAMMO 10:30
PROVIDERS: ATTEND Internal Medicine
DX: N63.10 Unspecified lump in the right breast, unspecified quadrant (principal); N60.41 Mammary duct ectasia of right breast; N64.52 Nipple discharge
CPT/HCPCS: 76641; 77066

== ENCOUNTER 2019-07-08 11:30 | Emergency (ER) | payer OTHER ==
[~2019-07-08] VITALS: Ht 157.5 cm; Wt 81.2 kg
[2019-07-08 12:04] LABS: BASO # 0.1 x10^3/uL (0.0-0.2); BASO % 1 % (0-3); EOS # 0.2 x10^3/uL (0.0-0.7); EOS % 2 % (0-3); HEMATOCRIT 39.8 % (36.0-47.0); HEMOGLOBIN 12.7 g/dL (12.0-15.5); LYMPH # 3.4 x10^3/uL (1.0-4.8); LYMPH % 50 % (24-48); MEAN CORPUSCULAR HEMOGLOBIN 23 pg (25-35); MEAN CORPUSCULAR HGB CONC 32 g/dL (31-37); MEAN CORPUSCULAR VOLUME 71 fL (79-100); MONO # 0.4 x10^3/uL (0.0-1.1); MONO % 6 % (0-9); NEUT # 2.8 x10^3/uL (1.8-7.7); NEUT % 41 % (31-73); PLATELET COUNT 303 x10^3/uL (140-400); RED BLOOD COUNT 5.61 x10^6/uL (3.50-5.40); RED CELL DISTRIBUTION WIDTH 16.1 % (11.5-14.5); WHITE BLOOD COUNT 6.9 x10^3/uL (4.0-11.0)
--- NOTE | 2019-07-08 12:14 | RAD ---
EXAM: Chest, single view. HISTORY: Palpitations. COMPARISON: 04/20/2018 FINDINGS: A frontal view of the chest is obtained. There is no infiltrate, pleural effusion or pneumothorax. The heart is normal in size. IMPRESSION: No acute pulmonary finding. Electronically signed by: Juanita Gonzalez MD (07/08/2019 12:11 PM) [facility]
[2019-07-08 12:16] LABS: CALCIUM 9.4 mg/dL (8.5-10.1); CREATININE 1.2 mg/dL (0.6-1.0); GFR 55.3; POTASSIUM 3.5 mmol/L (3.5-5.1)
[2019-07-08 12:24] LABS: ALBUMIN 3.8 g/dL (3.4-5.0); TOTAL PROTEIN 7.7 g/dL (6.4-8.2)
--- NOTE | 2019-07-08 12:31 | EKG ---
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
--- NOTE | 2019-07-08 12:34 | PHYS DOC ---
Past Medical History Past Medical History: Anxiety, GERD, P.U.D., Other Additional Past Medical Histor: DDD Past Surgical History: Other Additional Past Surgical Histo: D&C Alcohol Use: Rarely Drug Use: None Adult General Chief Complaint Chief Complaint: ANXIETY/PANIC ATTACK [facility] HPI Patient is a 59 year old female patient with history of anxiety, GERD, degenerative joint disease who presents via EMS with complaint of palpitation. Patient states she has sudden onset of palpitation and generalized weakness without shortness of breath, dizziness, chest pain, nausea and vomiting, focal neuro deficit and called 911 about 10 minutes after starting the symptom. Patient states she has had episodes of the same problem 4 years that usually happen once a month and diagnosed with anxiety. EMS reported that patient had heart rate of 150 and EKG brought by EMS showed atrial fibrillation with RVR. Patient has heart rate of 90s at arrival to ER and denied any problem. Review of Systems Review of Systems Constitutional: Denies fever or chills [] Eyes: Denies change in visual acuity, redness, or eye pain [] HENT: Denies nasal congestion or sore throat [] Respiratory: Denies cough or shortness of breath [] Cardiovascular: No additional information not addressed in HPI [] GI: Denies abdominal pain, nausea, vomiting, bloody stools or diarrhea [] : Denies dysuria or hematuria [] Musculoskeletal: Denies back pain or joint pain [] Integument: Denies rash or skin lesions [] Neurologic: Denies headache, focal weakness or sensory changes [] Endocrine: Denies polyuria or polydipsia [] All other systems were reviewed and found to be within normal limits, except as documented in this note. Allergies Allergies Allergies Coded Allergies Type Severity Reaction Last Updated Verified fish derived Allergy Severe Anaphylaxis 04/30/18 Yes shellfish derived Allergy Severe Anaphylaxis 04/30/18 Yes Penicillins Allergy Intermediate Rash 04/30/18 Yes Physical Exam Physical Exam Constitutional: Well developed, well nourished, no acute distress, non-toxic appearance. [] HENT: Normocephalic, atraumatic, bilateral external ears normal, oropharynx moist, no oral exudates, nose normal. [] Eyes: PERRLA, EOMI, conjunctiva normal, no discharge. [] Neck: Normal range of motion, no tenderness, supple, no stridor. [] Cardiovascular:Heart rate regular rhythm, no murmur [] Lungs & Thorax: Bilateral breath sounds clear to auscultation [] Abdomen: Bowel sounds normal, soft, no tenderness, no masses, no pulsatile masses. [] Skin: Warm, dry, no erythema, no rash. [] Back: No tenderness, no CVA tenderness. [] Extremities: No tenderness, no cyanosis, no clubbing, ROM intact, no edema. [] Neurologic: Alert and oriented X 3, normal motor function, normal sensory function, no focal deficits noted. [] Psychologic: Affect normal, judgement normal, mood normal. [] Current Patient Data Vital Signs Vital Signs Date Time Temp Pulse Resp B/P (MAP) Pulse Ox O2 Delivery O2 Flow Rate FiO2 07/08/19 12:59 90 21 133/81 (98) 98 Room Air 07/08/19 11:35 97.6 97.6 Lab Values Laboratory Tests Test 07/08/19 11:40 07/08/19 11:51 White Blood Count 6.9 x10^3/uL (4.0-11.0) Red Blood Count 5.61 x10^6/uL (3.50-5.40) H Hemoglobin 12.7 g/dL (12.0-15.5) Hematocrit 39.8 % (36.0-47.0) Mean Corpuscular Volume 71 fL (79-100) L Mean Corpuscular Hemoglobin 23 pg (25-35) L Mean Corpuscular Hemoglobin Concent 32 g/dL (31-37) Red Cell Distribution Width 16.1 % (11.5-14.5) H Platelet Count 303 x10^3/uL (140-400) Neutrophils (%) (Auto) 41 % (31-73) Lymphocytes (%) (Auto) 50 % (24-48) H Monocytes (%) (Auto) 6 % (0-9) Eosinophils (%) (Auto) 2 % (0-3) Basophils (%) (Auto) 1 % (0-3) Neutrophils # (Auto) 2.8 x10^3/uL (1.8-7.7) Lymphocytes # (Auto) 3.4 x10^3/uL (1.0-4.8) Monocytes # (Auto) 0.4 x10^3/uL (0.0-1.1) Eosinophils # (Auto) 0.2 x10^3/uL (0.0-0.7) Basophils # (Auto) 0.1 x10^3/uL (0.0-0.2) Platelet Estimate Pending Sodium Level 141 mmol/L (136-145) Potassium Level 3.5 mmol/L (3.5-5.1) Chloride Level 105 mmol/L (98-107) Carbon Dioxide Level 26 mmol/L (21-32) Anion Gap 10 (6-14) Blood Urea Nitrogen 24 mg/dL (7-20) H Creatinine 1.2 mg/dL (0.6-1.0) H Estimated GFR (Cockcroft-Gault) 55.3 BUN/Creatinine Ratio 20 (6-20) Glucose Level 107 mg/dL (70-99) H Calcium Level 9.4 mg/dL (8.5-10.1) Total Bilirubin 1.0 mg/dL (0.2-1.0) Aspartate Amino Transferase (AST) 17 U/L (15-37) Alanine Aminotransferase (ALT) 20 U/L (14-59) Alkaline Phosphatase 81 U/L (46-116) Creatine Kinase 125 U/L (26-192) Troponin I Quantitative 0.017 ng/mL (0.000-0.055) Total Protein 7.7 g/dL (6.4-8.2) Albumin 3.8 g/dL (3.4-5.0) Albumin/Globulin Ratio 1.0 (1.0-1.7) Thyroid Stimulating Hormone (TSH) 2.201 uIU/mL (0.358-3.74) Urine Collection Type Unknown Urine Color Yellow Urine Clarity Clear Urine pH 8.0 Urine Specific [place] <=1.005 Urine Protein Negative mg/dL (NEG-TRACE) Urine Glucose (UA) Negative mg/dL (NEG) Urine Ketones (Stick) Negative mg/dL (NEG) Urine Blood Trace (NEG) Urine Nitrite Negative (NEG) Urine Bilirubin Negative (NEG) Urine Urobilinogen Dipstick 0.2 mg/dL (0.2 mg/dL) Urine Leukocyte Esterase Small (NEG) Urine RBC 3-5 /HPF (0-2) Urine WBC 1-4 /HPF (0-4) Urine Squamous Epithelial Cells Many /LPF Urine Bacteria 0 /HPF (0-FEW) Laboratory Tests 07/08/19 11:40 Laboratory Tests 07/08/19 11:40 EKG EKG EKG interpreted by me. EKG at 1137 showed normal sinus rhythm at rate of 100, abnormal left axis deviation, left anterior fascicular block, normal ND and QT intervals, no acute ST-T wave elevation. Radiology/Procedures Radiology/Procedures [facility] [address] [place] [address] IMAGING REPORT Signed PATIENT: WESTON LEE: [id number] : 1960 LOCATION: ER AGE: 59 SEX: F EXAM STATUS: PRE ER ORD. PHYSICIAN: STEPHY LAMAR MD REASON: palpitation PROCEDURE: PORTABLE CHEST 1V EXAM: Chest, single view. HISTORY: Palpitations. COMPARISON: 04/20/2018 FINDINGS: A frontal view of the chest is obtained. There is no infiltrate, pleural effusion or pneumothorax. The heart is normal in size. IMPRESSION: No acute pulmonary finding. Electronically signed by: Juanita Machado MD (07/08/2019 12:11 PM) [facility] DICTATED and SIGNED BY: JUANITA MACHADO MD DATE: 07/08/19 1211 Course & Med Decision Making Course & Med Decision Making Pertinent Labs and Imaging studies reviewed. (See chart for details) Evaluation of patient in ER showed 59-year-old female patient with episodes of palpitation and anxiety that is often at arrival to ER. EKG obtained by EMS showed atrial flutter patient with RVR. Patient had unremarkable physical exam and EKG and labs except for mild irritation of BUN/creatinine. Dr. Thompson the on-call employment coordinator was consulted at 1306 and agreed with outpatient evaluation with Holter monitor. I've spoken with the patient and/or caregivers. I've explained the patient's condition, diagnosis and treatment plan based on information available to me at this time. I've answered the patient's and/or caregivers questions and addressed any concerns. The patient and/or caregivers have a good understanding the patient's diagnosis, condition and treatment plan as can be expected at this point. Vital signs have been stabilized. The patient's condition is stable for discharge from the emergency department. The patient will pursue further outpatient evaluation with her primary care provider or other designated consulting physician as outlined in the discharge instructions. Patient and/or caregivers are agreeable to this plan of care and follow-up instructions have been explained in detail. The patient and/or caregivers have received these instructions in written format and expressed understanding of these discharge instructions. The patient and her caregivers are aware that if any significant change in condition or worsening of symptoms should prompt him to immediately return to this of the closest emergency department. If an emergent department is not readily available I would encourage him to call 911. Dragon Disclaimer Dragon Disclaimer This electronic medical record was generated, in whole or in part, using a voice recognition dictation system. Departure Departure Impression: Primary Impression: Palpitation Additional Impressions: Paroxysmal atrial fibrillation with RVR Renal insufficiency Disposition: HOME, SELF-CARE (at 1326) Condition: IMPROVED Referrals: JESICA DE JESUS MD (PCP) MICHELLE GARCIA MD Patient Instructions: Atrial Fibrillation, Palpitations Additional Instructions: Drink plenty of liquids Follow-up with your primary care physician in 3-5 days Return to ER if not getting better Follow-up with on-call employment coordinator in 1or 2 days Thank you for visiting [facility]. We appreciate you trusting us with your care. If any additional problems come up don't hesitate to return to visit us. Please follow up with your primary care provider so they can plan additional care if needed and know about the problem that you had. If symptoms worsen come back to the Emergency Department. Any concerning symptoms that start such as chest pain, shortness of air, weakness or numbness on one side of the body, running high fevers or any other concerning symptoms return to the ER. Problem Qualifiers STEPHY LAMAR MD Jul 08, 2019 12:34
[2019-07-08 12:37] LABS: BILIRUBIN,URINE NEGATIVE (NEG); CLARITY,URINE CLEAR; COLOR,URINE YELLOW; NITRITE,URINE NEGATIVE (NEG); PROTEIN,URINE NEGATIVE (NEG-TRACE); UROBILINOGEN,URINE 0.2 mg/dL (0.2 mg/dL)
[2019-07-08 12:56] LABS: SQUAMOUS EPITHELIAL CELL,UR MANY /LPF
[2019-07-08 12:58] LABS: BACTERIA,URINE 0 /HPF (0-FEW)
[2019-07-08 13:22] VITALS: BP 130/79
[2019-07-08 14:15] LABS: HYPOCHROMIA MOD; PLT ESTIMATE ADEQUATE (ADEQUATE)
[2019-07-08 14:16] LABS: MICROCYTOSIS MOD
[2019-07-08 14:17] LABS: ANISOCYTOSIS SLIGHT
== END 2019-07-08 13:33 | disposition home or self-care (01) ==
LOC: ER 11:30
DX: I48.0 Paroxysmal atrial fibrillation (principal); R00.2 Palpitations; N28.9 Disorder of kidney and ureter, unspecified; K21.9 Gastro-esophageal reflux disease without esophagitis; F41.9 Anxiety disorder, unspecified; Z88.0 Allergy status to penicillin; Z91.013 Allergy to seafood
CPT/HCPCS: 36415; 71045; 80053; 81001; 82550; 84443; 84484; 85025; 87086; 93005; 99285-25

== ENCOUNTER 2019-08-14 23:24 | Emergency (ER) | payer OTHER ==
[~2019-08-14] VITALS: Ht 157.5 cm; Wt 82.7 kg
[2019-08-14 23:40] VITALS: BP 137/82
[2019-08-15] LABS: BILIRUBIN,URINE NEGATIVE (NEG); CLARITY,URINE CLEAR; COLOR,URINE YELLOW; NITRITE,URINE NEGATIVE (NEG); PH,URINE 5.5; PROTEIN,URINE NEGATIVE (NEG-TRACE); UROBILINOGEN,URINE 0.2 mg/dL (0.2 mg/dL)
[2019-08-15 00:04] LABS: BACTERIA,URINE FEW /HPF (0-FEW); SQUAMOUS EPITHELIAL CELL,UR MOD /LPF
[2019-08-15] MEDS ORDERED: NITR100C62 PO (00:35)
--- NOTE | 2019-08-15 00:36 | PHYS DOC ---
Past Medical History Past Medical History: Anxiety, GERD, P.U.D., Other Additional Past Medical Histor: DDD Past Surgical History: Other Additional Past Surgical Histo: D&C Smoking Status: Never Smoker Alcohol Use: Rarely Drug Use: None Adult General Chief Complaint Chief Complaint: PAIN ON URINATION HPI HPI Patient is a 59 year old female who presents to the ED today complaining of dysuria, lower abdominal pressure when voiding, symptoms began 2 days ago. Has history of UTIs and this feels like a previous UTI. Denies any fever, nausea, vomiting. Review of Systems Review of Systems Constitutional: Denies fever or chills [] Eyes: Denies change in visual acuity, redness, or eye pain [] HENT: Denies nasal congestion or sore throat [] Respiratory: Denies cough or shortness of breath [] Cardiovascular: No additional information not addressed in HPI [] GI: Reports low abdominal pressure, denies nausea, vomiting, bloody stools or diarrhea [] : Reports dysuria, denies hematuria [] Musculoskeletal: Denies back pain or joint pain [] Integument: Denies rash or skin lesions [] Neurologic: Denies headache, focal weakness or sensory changes [] All other systems were reviewed and found to be within normal limits, except as documented in this note. Current Medications Current Medications Current Medications Medications (Trade) Dose Ordered Sig/Willy Start Time Stop Time Status Last Admin Dose Admin Nitrofurantoin Macrocrystals (Macrobid) 100 mg 1X STAT 08/15/19 00:29 08/15/19 00:30 UNV Allergies Allergies Allergies Coded Allergies Type Severity Reaction Last Updated Verified fish derived Allergy Severe Anaphylaxis 04/30/18 Yes shellfish derived Allergy Severe Anaphylaxis 04/30/18 Yes Penicillins Allergy Intermediate Rash 04/30/18 Yes Physical Exam Physical Exam Constitutional: Well developed, well nourished, no acute distress, non-toxic appearance. [] HENT: Normocephalic, atraumatic, bilateral external ears normal, oropharynx moist, no oral exudates, nose normal. [] Eyes: PERRLA, EOMI, conjunctiva normal, no discharge. [] Neck: Normal range of motion, no tenderness, supple, no stridor. [] Cardiovascular:Heart rate regular rhythm, no murmur [] Lungs & Thorax: Bilateral breath sounds clear to auscultation [] Abdomen: Bowel sounds normal, soft, no tenderness, no masses, no pulsatile masses. [] Skin: Warm, dry, no erythema, no rash. [] Back: No tenderness, no CVA tenderness. [] Extremities: No tenderness, no cyanosis, no clubbing, ROM intact, no edema. [] Neurologic: Alert and oriented X 3, normal motor function, normal sensory function, no focal deficits noted. [] Psychologic: Affect normal, judgement normal, mood normal. [] Current Patient Data Vital Signs Vital Signs Date Time Temp Pulse Resp B/P (MAP) Pulse Ox O2 Delivery O2 Flow Rate FiO2 08/14/19 23:40 98.1 16 137/82 (100) 95 Room Air 98.1 Lab Values Laboratory Tests Test 08/14/19 23:40 Urine Collection Type Unknown Urine Color Yellow Urine Clarity Clear Urine pH 5.5 Urine Specific [place] 1.020 Urine Protein Negative mg/dL (NEG-TRACE) Urine Glucose (UA) Negative mg/dL (NEG) Urine Ketones (Stick) 15 mg/dL (NEG) Urine Blood Trace (NEG) Urine Nitrite Negative (NEG) Urine Bilirubin Negative (NEG) Urine Urobilinogen Dipstick 0.2 mg/dL (0.2 mg/dL) Urine Leukocyte Esterase Small (NEG) Urine RBC 1-2 /HPF (0-2) Urine WBC 11-20 /HPF (0-4) Urine Squamous Epithelial Cells Mod /LPF Urine Bacteria Few /HPF (0-FEW) Urine Mucus Marked /LPF EKG EKG [] Radiology/Procedures Radiology/Procedures [] Course & Med Decision Making Course & Med Decision Making Pertinent Labs and Imaging studies reviewed. (See chart for details) This is a 59-year-old female patient UTI complaints. Urine is positive for UTI. Discharged on MicroBid first dose given in the ED. Follow-up with PCP next week. Dragon Disclaimer Dragon Disclaimer This electronic medical record was generated, in whole or in part, using a voice recognition dictation system. Departure Departure Impression: Primary Impression: UTI (urinary tract infection) Disposition: 01 HOME, SELF-CARE Condition: STABLE Referrals: JESICA DE JESUS MD (PCP) follow up in 1 week Patient Instructions: Urinary Tract Infection Additional Instructions: You have urinary tract infection, take the prescribed antibiotics as ordered until completed. Follow-up with your doctor in 1-2 weeks. Your antibiotic prescriptions were sent to your pharmacy. Please pick them up tomorrow Scripts Nitrofurantoin Monohyd/M-Cryst (MACROBID 100 MG CAPSULE) 100 Mg Capsule 1 CAP PO BID for 7 Days, #14 CAP 0 Refills Prov: BARBARA HAMEED APRN 08/15/19 Problem Qualifiers Primary Impression: UTI (urinary tract infection) Urinary tract infection type: site unspecified Hematuria presence: without hematuria Qualified Codes: N39.0 - Urinary tract infection, site not specified BARBARA HAMEED APRN Aug 15, 2019 00:36
[2019-08-15] MEDS ORDERED: NITROFURANTOIN MONOHYD/M-CRYST 100 MG CAPSULE. PO ONE (01:00)
== END 2019-08-15 00:47 | disposition home or self-care (01) ==
LOC: ER 23:24
DX: N39.0 Urinary tract infection, site not specified (principal); K21.9 Gastro-esophageal reflux disease without esophagitis; Z88.0 Allergy status to penicillin; Z91.013 Allergy to seafood
CPT/HCPCS: 81001; 87086; 99283

== ENCOUNTER → 2019-08-28 | Outpatient (CLI) | payer OTHER ==
[2019-08-14 23:40] VITALS: BP 137/82
[~2019-08-28] MED LIST changes: +NITR100C62 PO; +REGADENOSON 0.4 MG/5 ML DISP.SYRIN. IV ONE
--- NOTE | 2019-08-28 11:43 | RAD ---
MR#: [id number] Date of Study: 08/28/2019 Ordering Physician: MICHELLE GARCIA Referring Physician: FLEX SCHOFIELD Tech: RT Phillip Sherwood) (N) APPROVED REPORT Test Type: Pharmacological Stress Nurse/Tech: Deanna Mcfarland RN Test Indications: Paroxysmal Supraventricular Tachycardia Cardiac History: HTN, See EMR. Medications: See EMR. Medical History: See EMR. Resting ECG: SR Resting Heart Rate: 68 bpm Resting Blood Pressure: 123/75mmHg Pretest Chest Pain: No chest pain Nurse/Tech Notes Lungs CTA, Heart tones regular. Consent: The procedure was explained to the patient in lay terms. Informed consent was witnessed. Woody eout was entered into [employer]. History and Stress Test performed by RT Maria Elena ([place]) (N) Pharm. Details Pharmacologic stress testing was performed using 0.4mg per 5ml of regadenoson given intravenously ove r 7-10 seconds. Stress Symptoms No chest pain or symptoms. POST EXERCISE Reason for Termination: Infusion complete Max HR: 124 bpm Max Blood Pressure: 153/71mmHg Blood Pressure response to exercise: Normal blood pressure response during stress. Heart Rate response to exercise: WNL Chest Pain: No. Arrhythmia: No. ST Change: No. INTERPRETATION Stress EKG Conclusion: No evidence of stress induced EKG changes Imaging Protocol IMAGE PROTOCOL: Rest Tc-99m/stress Tc-99m 1 day Rest: Stress: Viability: Radiopharm.Tc99m EtiajosfeJd13f Sestamibi Jzgg99wAr 31mCi Duration 13min. 13min. Img Date 08/28/2019 08/28/2019 Inj-Img Eljn14axo. 60min. Rest Admin Site:IV - Left AntecubitalAdministrator:RT Phillip Sherwood)(N) Stress Admin Site: IV - Left AntecubitalAdministrator: RT Phillip Arredondo)(N) STRESS DATA End Diast. Vol.86.0mlAv. Heart Rate82.0bpm End Syst. Vol.12.0mlCO Index BSA0.0L/min Myocardial Incc141.0gEject. Dvmgnmum38.0% Stress Rates Pk. Fill Rate2.61EDV/secLVtime Pk. Fill 183.54msec Pk. Empty Rate3.65ESV/secLVtime Pk. Vhyrz417.14msec 07/04 Pk. Fill1.73EDV/sec Stress Scores Regional WT0.00Summed WT0.00 Regional WM0.00Summed WM0.00 The rest and stress images show normal perfusion, normal contraction and thickening. LV Perf. Quant 17 Seg. SSS0.00 17 Seg. SRS0.00 17 Seg. SDS0.00 Stress Defect Extent (% LAD)0.00Rest Defect Extent (% LAD)0.00Rev. Defect Extent (% LAD)0.00 Stress Defect Extent (% LCX) 0.00Rest Defect Extent (% LCX)0.00Rev. Defect Extent (% LCX)0.00 Stress Defect Extent (% RCA)0.00Rest Defect Extent (% RCA)0.00Rev. Defect Extent (% RCA)0.00 Stress Defect Extent (% GUS)0.00Rest Defect Extent (% GUS)0.00Rev. Defect Extent (% GUS)0.00 Other Information Quality:Good Risk Assessment: Low Risk Conclusion 1. No evidence of EKG changes with stress testing. 2. Normal perfusion at stress/rest. 3. Low risk study. 4. EF > 60% Signed by : Shimon Bell, Electronically Approved : 08/28/2019 11:43:15
--- NOTE | 2019-08-28 12:01 | CARD ---
MR#: [id number] Date of Study: 08/28/2019 Ordering Physician: MICHELLE GARCIA, Referring Physician: MICHELLE GARCIA, Tech: Lesli Sanchez RDCS APPROVED REPORT EXAM: Two-dimensional and M-mode echocardiogram with Doppler and color Doppler. Other Information Quality : GoodHR: 82bpm Rhythm : NSR INDICATION SVT 2D DIMENSIONS RVDd3.1 (2.9-3.5cm)Left Atrium(2D)3.2 (1.6-4.0cm) IVSd1.3 (0.7-1.1cm)Aortic Root(2D)3.3 (2.0-3.7cm) LVDd4.3 (3.9-5.9cm)LVOT Diameter2.4 (1.8-2.4cm) PWd1.2 (0.7-1.1cm)LVDs2.7 (2.5-4.0cm) FS (%) 36.5 %SV54.0 ml LVEF(%)66.6 (>50%) Aortic Valve AoV Peak Shiva.138.4cm/Yasmeen Peak GR.7.7mmHg LVOT Peak Shiva.94.8cm/sAVA (VMAX)3.04cm2 Mitral Valve MV E Ojyfjija49.0cm/sMV DECEL [id number] MV A Owpbuyoc06.4cm/sE/A Ratio0.7 MV A Xqyvkpmy501lt Pulmonary Valve PV Peak Czfaqwsb01.5cm/s Tricuspid Valve TR P. Wexbflgg778ht/sRAP UHPLNRHW8oySh TR Peak Gr.26mzRpDLUT13ieUm Pulmonary Vein S1 Mkkqhxca49.2cm/sD2 Ehbeakam71.9cm/s PVa hojhcolz56blnm LEFT VENTRICLE The left ventricle is normal size. There is mild concentric left ventricular hypertrophy. The left ve ntricular systolic function is normal and the ejection fraction is within normal range. The Ejection Fraction is 60-65%. There is normal LV segmental wall motion. Transmitral Doppler flow pattern is Gra de I-abnormal relaxation pattern. RIGHT VENTRICLE The right ventricle is normal size. The right ventricular systolic function is normal. ATRIA The left atrium size is normal. The right atrium size is normal. The interatrial septum is intact wit h no evidence for an atrial septal defect or patent foramen ovale as noted on 2-D or Doppler imaging. AORTIC VALVE The aortic valve is normal in structure and function. Doppler and Color Flow revealed no significant aortic regurgitation. There is no significant aortic valvular stenosis. MITRAL VALVE The mitral valve is normal in structure and function. There is no mitral valve stenosis. Doppler and Color Flow revealed no mitral valve regurgitation noted. TRICUSPID VALVE The tricuspid valve is normal in structure and function. Doppler and Color Flow revealed trace tricus pid regurgitation. PA pressure is estimated at 16 mmHg. There is no tricuspid valve stenosis. PULMONIC VALVE Doppler and Color Flow revealed trace pulmonic valvular regurgitation. There is no pulmonic valvular stenosis. GREAT VESSELS The aortic root is normal in size. The ascending aorta is normal in size. The IVC is normal in size a nd collapses >50% with inspiration. PERICARDIAL EFFUSION There is no pleural effusion. There is no evidence of significant pericardial effusion. Critical Notification Critical Value: No <Conclusion> The left ventricular systolic function is normal and the ejection fraction is within normal range. Th e Ejection Fraction is 60-65%. There is normal LV segmental wall motion. Signed by : Shimon Bell, Electronically Approved : 08/28/2019 12:01:08
== END | disposition home or self-care (01) ==
LOC: NM 08:23
PROVIDERS: ATTEND Internal Medicine Cardiovascular Disease
DX: I51.7 Cardiomegaly (principal); I47.1 Supraventricular tachycardia; I48.91 Unspecified atrial fibrillation
CPT/HCPCS: 78452; 93017; 93306; A9500; J2785

== ENCOUNTER 2019-08-31 09:32 | Emergency (ER) | payer OTHER ==
[~2019-08-31] VITALS: Ht 157.5 cm; Wt 83.0 kg
[~2019-08-31 09:32] MED LIST changes: -REGADENOSON 0.4 MG/5 ML DISP.SYRIN. IV ONE
[2019-08-31 10:00] VITALS: BP 162/85
--- NOTE | 2019-08-31 10:14 | PHYS DOC ---
Past Medical History Past Medical History: Anxiety, GERD, P.U.D., Other Additional Past Medical Histor: DDD Past Surgical History: Other Additional Past Surgical Histo: D&C Smoking Status: Never Smoker Alcohol Use: Rarely Drug Use: None Adult General Chief Complaint Chief Complaint: OTHER COMPLAINTS [facility] Patient is a 59 year old female who presents with a burning sensation this been ongoing 2-3 weeks. The patient describes the burning sensation as from the waist up and to her chest. She also states she's been having some diarrhea this been ongoing and the same amount of time. She denies any nausea, or vomiting. The patient was recently diagnosed with A. fib and placed on 2 medicines. She was placed on Metoprolol and Flecainide. She denies any fevers, or any other additional symptoms. Review of Systems Review of Systems Constitutional: Denies fever or chills [] Eyes: Denies change in visual acuity, redness, or eye pain [] HENT: Denies nasal congestion or sore throat [] Respiratory: Denies cough or shortness of breath [] Cardiovascular: No additional information not addressed in HPI [] GI: Denies abdominal pain, nausea, vomiting, bloody stools or diarrhea [] : Denies dysuria or hematuria [] Musculoskeletal: Denies back pain or joint pain [] Integument: Denies rash or skin lesions [] Neurologic: Reports burning sensation. Endocrine: Denies polyuria or polydipsia [] Complete systems were reviewed and found to be within normal limits, except as documented in this note. Allergies Allergies Allergies Coded Allergies Type Severity Reaction Last Updated Verified fish derived Allergy Severe Anaphylaxis 04/30/18 Yes shellfish derived Allergy Severe Anaphylaxis 04/30/18 Yes Penicillins Allergy Intermediate Rash 04/30/18 Yes Physical Exam Physical Exam Constitutional: Well developed, well nourished, no acute distress, non-toxic appearance. []. [] Cardiovascular:Heart rate regular rhythm, no murmur [] Lungs & Thorax: Bilateral breath sounds clear to auscultation [] Abdomen: Bowel sounds normal, soft, no tenderness, no masses, no pulsatile masses. [] Skin: Warm, dry, no erythema, no rash. [] Neurologic: Alert and oriented X 3, normal motor function, normal sensory function, no focal deficits noted. [] Psychologic: Affect normal, judgement normal, mood normal. [] Current Patient Data Vital Signs Vital Signs Date Time Temp Pulse Resp B/P (MAP) Pulse Ox O2 Delivery O2 Flow Rate FiO2 08/31/19 10:00 98.1 65 16 162/85 (110) 98 Room Air 98.1 Lab Values Laboratory Tests Test 08/31/19 10:15 White Blood Count 6.2 x10^3/uL (4.0-11.0) Red Blood Count 5.16 x10^6/uL (3.50-5.40) Hemoglobin 12.1 g/dL (12.0-15.5) Hematocrit 37.0 % (36.0-47.0) Mean Corpuscular Volume 72 fL (79-100) L Mean Corpuscular Hemoglobin 24 pg (25-35) L Mean Corpuscular Hemoglobin Concent 33 g/dL (31-37) Red Cell Distribution Width 16.7 % (11.5-14.5) H Platelet Count 233 x10^3/uL (140-400) Neutrophils (%) (Auto) 53 % (31-73) Lymphocytes (%) (Auto) 36 % (24-48) Monocytes (%) (Auto) 8 % (0-9) Eosinophils (%) (Auto) 2 % (0-3) Basophils (%) (Auto) 1 % (0-3) Neutrophils # (Auto) 3.3 x10^3/uL (1.8-7.7) Lymphocytes # (Auto) 2.2 x10^3/uL (1.0-4.8) Monocytes # (Auto) 0.5 x10^3/uL (0.0-1.1) Eosinophils # (Auto) 0.1 x10^3/uL (0.0-0.7) Basophils # (Auto) 0.1 x10^3/uL (0.0-0.2) Platelet Estimate Pending Sodium Level 142 mmol/L (136-145) Potassium Level 4.0 mmol/L (3.5-5.1) Chloride Level 105 mmol/L (98-107) Carbon Dioxide Level 27 mmol/L (21-32) Anion Gap 10 (6-14) Blood Urea Nitrogen 14 mg/dL (7-20) Creatinine 1.1 mg/dL (0.6-1.0) H Estimated GFR (Cockcroft-Gault) 61.1 BUN/Creatinine Ratio 13 (6-20) Glucose Level 106 mg/dL (70-99) H Calcium Level 8.8 mg/dL (8.5-10.1) Magnesium Level 1.9 mg/dL (1.8-2.4) Total Bilirubin 1.1 mg/dL (0.2-1.0) H Aspartate Amino Transferase (AST) 13 U/L (15-37) L Alanine Aminotransferase (ALT) 11 U/L (14-59) L Alkaline Phosphatase 77 U/L (46-116) Total Protein 7.2 g/dL (6.4-8.2) Albumin 3.6 g/dL (3.4-5.0) Albumin/Globulin Ratio 1.0 (1.0-1.7) Laboratory Tests 08/31/19 10:15 Laboratory Tests 08/31/19 10:15 EKG EKG [] Radiology/Procedures Radiology/Procedures [] Course & Med Decision Making Course & Med Decision Making Pertinent Labs and Imaging studies reviewed. (See chart for details) Patient was recently started on new medications and has been having diarrhea. Will check labs. Labs are unremarkable. Likely due to medication side effect. Will have follow up with PCP. Dragon Disclaimer Dragon Disclaimer This electronic medical record was generated, in whole or in part, using a voice recognition dictation system. Departure Departure Impression: Primary Impression: Burning sensation Disposition: 01 HOME, SELF-CARE Condition: STABLE Referrals: JESICA DE JESUS MD (PCP) Additional Instructions: Thank you for visiting [facility]. We appreciate you trusting us with your care. If any additional problems come up don't hesitate to return to visit us. Please follow up with your primary care provider so they can plan additional care if needed and know about the problem that you had. If symptoms worsen come back to the Emergency Department. Any concerning symptoms that start such as chest pain, shortness of air, weakness or numbness on one side of the body, running high fevers or any other concerning symptoms return to the ER. RACHID BULLOCK APRN Aug 31, 2019 10:14
[2019-08-31 10:25] LABS: BASO # 0.1 x10^3/uL (0.0-0.2); BASO % 1 % (0-3); EOS # 0.1 x10^3/uL (0.0-0.7); EOS % 2 % (0-3); HEMOGLOBIN 12.1 g/dL (12.0-15.5); LYMPH # 2.2 x10^3/uL (1.0-4.8); LYMPH % 36 % (24-48); MEAN CORPUSCULAR HEMOGLOBIN 24 pg (25-35); MEAN CORPUSCULAR HGB CONC 33 g/dL (31-37); MEAN CORPUSCULAR VOLUME 72 fL (79-100); MONO # 0.5 x10^3/uL (0.0-1.1); MONO % 8 % (0-9); NEUT # 3.3 x10^3/uL (1.8-7.7); NEUT % 53 % (31-73); PLATELET COUNT 233 x10^3/uL (140-400); RED BLOOD COUNT 5.16 x10^6/uL (3.50-5.40); RED CELL DISTRIBUTION WIDTH 16.7 % (11.5-14.5); WHITE BLOOD COUNT 6.2 x10^3/uL (4.0-11.0)
[2019-08-31 10:32] LABS: CALCIUM 8.8 mg/dL (8.5-10.1); CREATININE 1.1 mg/dL (0.6-1.0); GFR 61.1
[2019-08-31 10:38] LABS: ALBUMIN 3.6 g/dL (3.4-5.0); MAGNESIUM 1.9 mg/dL (1.8-2.4); TOTAL BILIRUBIN 1.1 mg/dL (0.2-1.0); TOTAL PROTEIN 7.2 g/dL (6.4-8.2)
[2019-08-31 11:53] LABS: ANISOCYTOSIS SLIGHT; HYPOCHROMIA PRESENT; PLT ESTIMATE ADEQUATE (ADEQUATE)
== END 2019-08-31 11:40 | disposition home or self-care (01) ==
LOC: ER 09:32
DX: R07.89 Other chest pain (principal); R19.7 Diarrhea, unspecified; F41.9 Anxiety disorder, unspecified; K21.9 Gastro-esophageal reflux disease without esophagitis; I48.91 Unspecified atrial fibrillation; Z88.0 Allergy status to penicillin; Z91.013 Allergy to seafood
CPT/HCPCS: 36415; 80053; 83735; 85025; 99283

== ENCOUNTER → 2019-10-29 | Day surgery (SDC) | payer OTHER ==
[~2019-10-29] MED LIST changes: +FLEC100T PO; +HYDROmorphone 2 MG/ML VIAL IV PRN; +IV RINGERS,LACTATED 1000ML 1,000 ML IV SCH; +LIDOCAINE 1% PF 2 ML VIAL. ID PRN; +LORA-627 PO; +METO25TA2 PO; +MORPHINE SULFATE 2 MG/ML VIAL. IV PRN; +ONDANSETRON PF 4 MG/2 ML VIAL. IV PRN; +PROCHLORPERAZINE 10 MG/2 ML VIAL. IV PRN; +PROPOFOL 20 ML IV ONE; +fentaNYL PF VIAL 100 MCG/2 ML VIAL IV PRN
[2019-10-29 08:32] VITALS: BP 133/78
--- NOTE | 2019-10-29 08:47 | HP ---
ADMIT DATE: REASON: Dysphagia. REFERRING PHYSICIAN: Dr. Aleena Barraza. HISTORY OF PRESENT ILLNESS: A 59-year-old -[place] female whose past medical history is significant for asthma, hypertension as well as non-ST elevation [place], seen with dysphagia, foods stick on the substernal location. Risk factors for reflux. Positive for caffeine, but negative for tobacco and alcohol. Her weight and appetite have been stable. Protonix 40 mg daily has helped, but not resolved her symptoms. With ongoing symptoms, she requests additional evaluation. PAST MEDICAL HISTORY: Heart disease, hypertension, status post [place]. ALLERGIES: PENICILLIN, IODINE, FISH. MEDICATIONS: Include Xanax, aspirin, flecainide, fluticasone, loratadine, metoprolol, oxycodone, and tramadol. FAMILY HISTORY: Noncontributory. SOCIAL HISTORY: Noncontributory. PAST SURGICAL HISTORY: Noncontributory. PHYSICAL EXAMINATION: GENERAL: Reveals a well-nourished, well-developed -[place] female who is alert, cooperative, in no acute distress. VITAL SIGNS: Temperature is 97.5, pulse 66, respiratory rate 18. LUNGS: Clear. CARDIOVASCULAR: Reveals an S1, S2 without S3, S4 or appreciable murmur. ABDOMEN: Reveals a soft abdomen, normal bowel sounds, without appreciable hepatosplenomegaly. EXTREMITIES: Reveals no cyanosis, clubbing or edema. IMPRESSION: Dysphagia with heartburn. Etiology is to be determined. Recommend upper endoscopy, possible biopsy and dilatation. Risks and benefits of the procedure including risk of hemorrhage and perforation during the operation were discussed. The patient is willing to proceed at this time. SOL CANDELARIO MD DR: INGE/angie JOB#: [id number] / [id number]
== END ==
LOC: ENDOS 06:53
PROVIDERS: ATTEND Internal Medicine Gastroenterology
DX: R13.10 Dysphagia, unspecified (principal); K22.2 Esophageal obstruction; J45.909 Unspecified asthma, uncomplicated; I10 Essential (primary) hypertension; I25.2 Old myocardial infarction; F15.90 Other stimulant use, unspecified, uncomplicated; Z91.041 Radiographic dye allergy status; Z88.0 Allergy status to penicillin; Z91.013 Allergy to seafood
CPT/HCPCS: 43235; 43450; J2704

== ENCOUNTER 2020-03-10 22:40 | Emergency (ER) | payer OTHER ==
[~2020-03-10] VITALS: Ht 157.5 cm; Wt 76.8 kg
[~2020-03-10 22:40] MED LIST changes: -HYDROmorphone 2 MG/ML VIAL IV PRN; -IV RINGERS,LACTATED 1000ML 1,000 ML IV SCH; -LIDOCAINE 1% PF 2 ML VIAL. ID PRN; -MORPHINE SULFATE 2 MG/ML VIAL. IV PRN; -ONDANSETRON PF 4 MG/2 ML VIAL. IV PRN; -PROCHLORPERAZINE 10 MG/2 ML VIAL. IV PRN; -PROPOFOL 20 ML IV ONE; -fentaNYL PF VIAL 100 MCG/2 ML VIAL IV PRN
--- NOTE | 2020-03-11 00:17 | PHYS DOC ---
Past Medical History Past Medical History: A-Fib, Anxiety, GERD, Hypertension, P.U.D., UTI, Other Additional Past Medical Histor: DDD Past Surgical History: Other Additional Past Surgical Histo: D&C Smoking Status: Never Smoker Alcohol Use: Rarely Drug Use: None General Adult EDM: Chief Complaint: HYPERTENSION HPI: HPI: Patient is a 59 year [id number] female past medical history of hypertension A. fib anxiety and GERD presents for the evaluation of burning sensation over her entire body. Patient states she she was asleep in the recliner when family woke her up around 2200 hrs. Patient at that time noticed a burning sensation over her entire body. Patient also states this afternoon she started to feel as if she was coming down with a cold. Patient states some throat discomfort. Denies shortness of breath cough fever or chills. At time of my exam patient without burning sensation. Patient vital signs stable. Review of Systems: Review of Systems: Constitutional: Denies fever or chills. [] Eyes: Denies change in visual acuity. [] HENT: Denies nasal congestion positive sore throat. [] Respiratory: Denies cough or shortness of breath. [] Cardiovascular: Denies chest pain or edema. [] GI: Denies abdominal pain, nausea, vomiting, bloody stools or diarrhea. [] : Denies dysuria. [] Musculoskeletal: Denies back pain or joint pain. [] Integument: Denies rash. [] Neurologic: Denies headache, focal weakness or sensory changes. [] Endocrine: Denies polyuria or polydipsia. [] Lymphatic: Denies swollen glands. [] Psychiatric: Denies depression or anxiety. [] Heart Score: Risk Factors: Risk Factors: DM, Current or recent (<one month) smoker, HTN, HLP, family history of CAD, obesity. Risk Scores: Score 0 - 3: 2.5% MACE over next 6 weeks - Discharge Home Score 4 - 6: 20.3% MACE over next 6 weeks - Admit for Clinical Observation Score 7 - 10: 72.7% MACE over next 6 weeks - Early Invasive Strategies Allergies: Allergies: Allergies Coded Allergies Type Severity Reaction Last Updated Verified fish derived Allergy Severe Anaphylaxis 10/29/19 Yes shellfish derived Allergy Severe Anaphylaxis 10/29/19 Yes Penicillins Allergy Intermediate Rash 4/29/20 Yes Physical Exam: PE: Constitutional: Well developed, well nourished, no acute distress, non-toxic appearance. [] HENT: Normocephalic, atraumatic, bilateral external ears normal, oropharynx moist, no oral exudates, nose normal. [] Eyes: PERRLA, EOMI, conjunctiva normal, no discharge. [] Neck: Normal range of motion, no tenderness, supple, no stridor. [] Cardiovascular:Heart rate regular rhythm, no murmur [] Lungs & Thorax: Bilateral breath sounds clear to auscultation [] Abdomen: Bowel sounds normal, soft, no tenderness, no masses, no pulsatile masses. [] Skin: Warm, dry, no erythema, no rash. [] Back: No tenderness, no CVA tenderness. [] Extremities: No tenderness, no cyanosis, no clubbing, ROM intact, no edema. [] Neurologic: Alert and oriented X 3, normal motor function, normal sensory function, no focal deficits noted. [] Psychologic: Affect normal, judgement normal, mood normal. [] Current Patient Data: Vital Signs: Vital Signs Date Time Temp Pulse Resp B/P (MAP) Pulse Ox O2 Delivery O2 Flow Rate FiO2 03/10/20 23:00 98.0 16 164/85 (111) 96 Room Air 98.0 EKG: EKG: [] Radiology/Procedures: Radiology/Procedures: [] Course & Med Decision Making: Course & Med Decision Making Pertinent Labs and Imaging studies reviewed. (See chart for details) [] Labs reviewed no abnormalities. EKG no acute abnormalities. COvid test obtained and pending. Nilton Disclaimer: Nilton Disclaimer: This electronic medical record was generated, in whole or in part, using a voice recognition dictation system. Departure Departure Impression: Primary Impression: Hypertension Additional Impressions: Paresthesia Viral syndrome Disposition: 01 HOME, SELF-CARE Referrals: JESICA DE JESUS MD (PCP) Patient Instructions: Hypertension, Paresthesia Additional Instructions: You have been tested for or diagnosed with COVID-19. It is an infection caused by a new type of coronavirus. COVID-19 will cause cold-like or mild flu symptoms in most. It can cause more severe symptoms like problems breathing in some. There is no treatment for COVID-19. The body will clear the infection over time. Self-care will help to ease discomfort. Steps to Take: Self-Care Rest as needed. Healthy habits may help you feel better. Steps include: Choose healthy foods including fruits and vegetables. Drink water throughout the day. Get plenty of sleep each night. If you smoke, try to quit. It may ease breathing. Avoid alcohol. Keep Others Healthy The virus can spread to others. Droplets are released every time you sneeze or cough. The droplets can get into the mouth, nose, or eyes of people near you and lead to infection. To lower the chances of spreading COVID-19 to others: Stay at home until your doctor has said it is safe to leave. If you tested positive this will mean staying isolated until both of the following are true: At least 7 days have passed since the start of illness. You are free of fever for at least 72 hours without the use of medicine. During this time: - Avoid public areas, events, or transportation. Do not return to work or school until your doctor has said it is safe to do so. - Call ahead if you need to go to a medical center. Let them know you may have COVID-19. It will help them guide you where to go. They may also ask you to wear a facemask when you come to the office. - If you call for emergency medical services, let them know you may have COVID- 19. While at home: - Try to avoid close contact with others. Stay about 6 feet away. - If possible, spend most of your time in a separate room from others. - Use a face mask if you will be in close contact with others such as sharing a room or vehicle. - Have someone wipe down common surfaces in the home. Use household taxi servicer every day on areas like doorknobs, counters, or sinks. - Cough or sneeze into a tissue. Throw the tissue away right after use. If a tissue is not available, cough or sneeze into your elbow. - Wash your hands often. Wash them after sneezing or coughing. Use soap and water and wash for at least 20 seconds. Alcohol based hand airplane cleaner can be used if soap and water is not available. - Do not prepare food for others. Avoid sharing personal items like forks, spoons, or toothbrushes. - Avoid close contact with pets while you are sick. There is no evidence of the virus passing to pets. This is a safety step until more is known about this virus. Isolation can be frustrating. Social interaction can help. Keep in touch with friends and family through phone and tech options. You can still interact with others in your home, just keep a safe distance of about 6 feet. Follow-up: Your doctors office will check in with you to see if there are any changes in your health. You may be asked to keep track of symptoms to share with them. They will also let you know when you are clear to be in public again. Problems to Look Out For: Contact your doctor if your recovery is not going as you expect. Get emergency care if you have problems such as: - Trouble breathing - Nonstop chest pain or pressure - Changes in awareness, confusion, or problems waking - Lips or face have bluish color - Worsening of symptoms If you think you have an emergency, call for emergency medical services right away. As taken from Replaced by [facility] Justicifation of Admission Dx: Justifications for Admission: Justification of Admission Dx: N/A ROJAS MARTINEZ I DO Mar 11, 2020 00:17
[2020-03-11 01:31] LABS: BASO # 0.1 x10^3/uL (0.0-0.2); BASO % 1 % (0-3); EOS # 0.1 x10^3/uL (0.0-0.7); EOS % 2 % (0-3); HEMATOCRIT 38.8 % (36.0-47.0); HEMOGLOBIN 12.3 g/dL (12.0-15.5); LYMPH # 2.4 x10^3/uL (1.0-4.8); LYMPH % 34 % (24-48); MEAN CORPUSCULAR HEMOGLOBIN 23 pg (25-35); MEAN CORPUSCULAR HGB CONC 32 g/dL (31-37); MEAN CORPUSCULAR VOLUME 71 fL (79-100); MONO # 0.5 x10^3/uL (0.0-1.1); MONO % 7 % (0-9); NEUT # 3.9 x10^3/uL (1.8-7.7); NEUT % 56 % (31-73); PLATELET COUNT 238 x10^3/uL (140-400); RED BLOOD COUNT 5.46 x10^6/uL (3.50-5.40); RED CELL DISTRIBUTION WIDTH 16.1 % (11.5-14.5)
[2020-03-11 01:38] LABS: CALCIUM 8.9 mg/dL (8.5-10.1); CREATININE 1.1 mg/dL (0.6-1.0); GFR 61.1; POTASSIUM 3.8 mmol/L (3.5-5.1)
[2020-03-11 01:44] LABS: ALBUMIN 3.5 g/dL (3.4-5.0); ALBUMIN/GLOBULIN RATIO 0.9 (1.0-1.7); TOTAL BILIRUBIN 0.7 mg/dL (0.2-1.0); TOTAL PROTEIN 7.3 g/dL (6.4-8.2)
[2020-03-11 02:11] VITALS: BP 133/73
--- NOTE | 2020-03-11 02:41 | EKG ---
[facility] [address] [place] [address] Test Date: 2020-03-11 Test Time: 00:36:09 Pat Name: NEHEMIAH LEE Department: Room: Gender: F [employer]: : 1960 Requested By: ROJAS MARTINEZ Order Number: [id number] Reading MD: Measurements Intervals [place] Rate: 67 P: 29 DC: 200 QRS: -29 QRSD: 92 T: 22 QT: 446 QTc: 474 Interpretive Statements SINUS RHYTHM LEFTWARD AXIS QRS(T) CONTOUR ABNORMALITY CONSIDER ANTEROSEPTAL MYOCARDIAL DAMAGE PROLONGED QT POSSIBLY ABNORMAL ECG RI6.02 No previous ECG available for comparison
[2020-03-11 03:15] LABS: HYPOCHROMIA MOD; MICROCYTOSIS MOD; PLT ESTIMATE ADEQUATE (ADEQUATE); TARGET CELLS OCC
== END 2020-03-11 02:32 | disposition home or self-care (01) ==
LOC: ER 22:40
DX: I10 Essential (primary) hypertension (principal); B34.9 Viral infection, unspecified; R20.0 Anesthesia of skin; F41.9 Anxiety disorder, unspecified; K21.9 Gastro-esophageal reflux disease without esophagitis; Z98.890 Other specified postprocedural states; Z91.013 Allergy to seafood; Z88.0 Allergy status to penicillin
CPT/HCPCS: 36415; 80053; 84484; 85025; 93005; 99285; U0003

== ENCOUNTER 2020-06-28 19:08 | Emergency (ER) | payer OTHER ==
[~2020-06-28] VITALS: Ht 157.5 cm; Wt 77.3 kg
[2020-06-28 19:21] VITALS: BP 140/86
[2020-06-28] MEDS ORDERED: METH4TAB2 PO (20:21)
[2020-06-28] MEDS ORDERED: DOXY100C2 PO (20:21)
--- NOTE | 2020-06-28 20:25 | ED.ADGEN ---
Past Medical History Past Medical History: A-Fib, Anxiety, GERD, Hypertension, P.U.D., UTI, Other Additional Past Medical Histor: DDD Past Surgical History: Other Additional Past Surgical Histo: D&C Smoking Status: Never Smoker Alcohol Use: Rarely Drug Use: None General Adult EDM: Chief Complaint: HEADACHE HPI: HPI: Patient is a 60-year-old previously healthy female who presents to the emergency room complaining of frontal head pressure, pressure within her cheeks, nasal congestion. She states that this feels very similar to prior episodes of sinusitis that she has had. She has had symptoms for the last 7 days. She states they have been constant and she has been trying [id number] medications without relief. She states typically this does help but has not helped this time. She denies any fever, chills, sweats, cough, shortness of breath, chest pain, chest congestion, nausea, vomiting, abdominal pain, change of taste, change of smell. Review of Systems: Review of Systems: Complete ROS is negative unless otherwise documented in HPI Allergies: Allergies: Allergies Coded Allergies Type Severity Reaction Last Updated Verified fish derived Allergy Severe Anaphylaxis 10/29/19 Yes shellfish derived Allergy Severe Anaphylaxis 10/29/19 Yes Penicillins Allergy Intermediate Rash 10/29/19 Yes Physical Exam: PE: General: Awake, alert, NAD. Well Nourished, well hydrated. Cooperative HEENT: Atraumatic, EOMI, PERRL, airway patent, moist oral mucosa, nasal turbinates swollen, tenderness along sinuses Neck: Supple, trachea midline Respiratory: CTA bilaterally, normal effort, no wheezing/crackles CV: RRR, no murmur, cap refill <2 GI: Soft, nondistended, nontender, no masses MSK: No obvious deformities Skin: Warm, dry, intact Neuro: A&O x3, speech NL, sensory and motor grossly intact, no focal deficits Psych: Normal affect, normal mood, not suicidal or homicidal Current Patient Data: Vital Signs: Vital Signs Date Time Temp Pulse Resp B/P (MAP) Pulse Ox O2 Delivery O2 Flow Rate FiO2 06/28/20 19:21 98.4 73 18 140/86 (104) 100 98.4 EKG: EKG: [] Heart Score: Risk Factors: Risk Factors: DM, Current or recent (<one month) smoker, HTN, HLP, family history of CAD, obesity. Risk Scores: Score 0 - 3: 2.5% MACE over next 6 weeks - Discharge Home Score 4 - 6: 20.3% MACE over next 6 weeks - Admit for Clinical Observation Score 7 - 10: 72.7% MACE over next 6 weeks - Early Invasive Strategies Radiology/Procedures: Radiology/Procedures: [] Course & Med Decision Making: Course & Med Decision Making Pertinent Labs and Imaging studies reviewed. (See chart for details) Patient is 60-year-old female who presents to the emergency room with symptoms of sinusitis. She is 6 days into symptoms and appears to be getting worse. Given this we will go ahead and start her on antibiotics and steroids. Patient would like to get Covid tested and a Covid test will be done. We have discussed quarantining until she gets her results back. Patient's test results and vitals while in the ED were fully reviewed and discussed with the patient. Patient is stable and at this time does not need admission to the hospital. We have discussed strict return precautions and the importance of following up with their Primary Care Physician. Patient stated understanding and was given an opportunity to ask any questions. Patient is in agreement with plan. Nilton Disclaimer: Dragon Disclaimer: This electronic medical record was generated, in whole or in part, using a voice recognition dictation system. Departure Departure Impression: Primary Impression: Sinus infection Disposition: 01 DC HOME SELF CARE/HOMELESS Condition: STABLE Referrals: JESICA DE JESUS MD (PCP) Patient Instructions: Sinusitis Scripts Doxycycline Hyclate (DOXYCYCLINE HYCLATE) 100 Mg Capsule 1 CAP PO BID, #14 CAP Prov: BEAR LEI MD 06/28/20 Methylprednisolone (MEDROL) 4 Mg Tab.ds.pk 1 PKG PO UD for inflammation, #1 PKG Prov: BEAR LEI MD 06/28/20 BEAR LEI MD Jun 28, 2020 20:25
== END 2020-06-28 20:53 | disposition home or self-care (01) ==
LOC: ER 19:08
DX: J32.9 Chronic sinusitis, unspecified (principal); R09.81 Nasal congestion; Z20.818 Contact with and (suspected) exposure to other bacterial communicable diseases; R51.9 Headache, unspecified; I48.20 Chronic atrial fibrillation, unspecified; F41.9 Anxiety disorder, unspecified; K21.9 Gastro-esophageal reflux disease without esophagitis; I10 Essential (primary) hypertension; Z98.890 Other specified postprocedural states; Z88.0 Allergy status to penicillin; Z91.013 Allergy to seafood
CPT/HCPCS: 99283; U0003; C9803

== ENCOUNTER 2020-08-13 17:50 | Emergency (ER) | payer OTHER ==
[~2020-08-13] VITALS: Ht 157.5 cm; Wt 84.5 kg
[~2020-08-13 17:50] MED LIST changes: +DOXY100C2 PO
[2020-08-13 19:23] LABS: BASO # 0.1 x10^3/uL (0.0-0.2); BASO % 2 % (0-3); EOS # 0.1 x10^3/uL (0.0-0.7); EOS % 2 % (0-3); HEMATOCRIT 37.9 % (36.0-47.0); HEMOGLOBIN 12.6 g/dL (12.0-15.5); LYMPH # 3.2 x10^3/uL (1.0-4.8); LYMPH % 44 % (24-48); MEAN CORPUSCULAR HEMOGLOBIN 23 pg (25-35); MEAN CORPUSCULAR HGB CONC 33 g/dL (31-37); MEAN CORPUSCULAR VOLUME 71 fL (79-100); MONO # 0.5 x10^3/uL (0.0-1.1); MONO % 7 % (0-9); NEUT # 3.4 x10^3/uL (1.8-7.7); NEUT % 46 % (31-73); PLATELET COUNT 232 x10^3/uL (140-400); RED BLOOD COUNT 5.38 x10^6/uL (3.50-5.40); RED CELL DISTRIBUTION WIDTH 15.7 % (11.5-14.5); WHITE BLOOD COUNT 7.4 x10^3/uL (4.0-11.0)
--- NOTE | 2020-08-13 19:27 | PHYS DOC ---
Past Medical History Past Medical History: A-Fib, Anxiety, GERD, Hypertension, P.U.D., UTI, Other Additional Past Medical Histor: DDD Past Surgical History: Other Additional Past Surgical Histo: D&C Smoking Status: Never Smoker Alcohol Use: Rarely Drug Use: None Adult General Chief Complaint Chief Complaint: OTHER COMPLAINTS [facility] HPI Patient is a 60 year old female with past medical history of A. fib, hypertension and GERD now presents emergency department complaint of left anterior chest pain. Patient said for the last 2 weeks she is having a sen sation of bulging over the left lateral ribs. States it happened she thinks when she was chasing up to read something above her head at home. Since that time intermittent discomfort in the area. Denies any distinct sharp or stabbing pain. Denies any nausea, vomiting, fever, chills, cough, dizziness or lightheadedness. Review of Systems Review of Systems Constitutional: Denies fever or chills [] Eyes: Denies change in visual acuity, redness, or eye pain [] HENT: Denies nasal congestion or sore throat [] Respiratory: Denies cough or shortness of breath [] Cardiovascular: No additional information not addressed in HPI [] GI: Denies abdominal pain, nausea, vomiting, bloody stools or diarrhea [] : Denies dysuria or hematuria [] Musculoskeletal: Denies back pain or joint pain [] Integument: Denies rash or skin lesions [] Neurologic: Denies headache, focal weakness or sensory changes [] Endocrine: Denies polyuria or polydipsia [] All other systems were reviewed and found to be within normal limits, except as documented in this note. Allergies Allergies Allergies Coded Allergies Type Severity Reaction Last Updated Verified fish derived Allergy Severe Anaphylaxis 10/29/19 Yes shellfish derived Allergy Severe Anaphylaxis 10/29/19 Yes Penicillins Allergy Intermediate Rash 10/29/19 Yes Physical Exam Physical Exam Constitutional: Well developed, well nourished, no acute distress, non-toxic appearance. [] HENT: Normocephalic, atraumatic, bilateral external ears normal, oropharynx moist, no oral exudates, nose normal. [] Eyes: PERRLA, EOMI, conjunctiva normal, no discharge. [] Neck: Normal range of motion, no tenderness, supple, no stridor. [] Cardiovascular:Heart rate regular rhythm, no murmur [] Lungs & Thorax: Bilateral breath sounds clear to auscultation [] Abdomen: Bowel sounds normal, soft, no tenderness, no masses, no pulsatile masses. [] Skin: Warm, dry, no erythema, no rash. [] Back: No tenderness, no CVA tenderness. [] Extremities: No tenderness, no cyanosis, no clubbing, ROM intact, no edema. [] Neurologic: Alert and oriented X 3, normal motor function, normal sensory function, no focal deficits noted. [] Psychologic: Affect normal, judgement normal, mood normal. [] Current Patient Data Vital Signs Vital Signs Date Time Temp Pulse Resp B/P (MAP) Pulse Ox O2 Delivery O2 Flow Rate FiO2 08/13/20 19:08 98.3 77 154/88 (110) 97 98.3 08/13/20 18:07 20 Room Air Lab Values Laboratory Tests Test 08/13/20 19:15 White Blood Count 7.4 x10^3/uL (4.0-11.0) Red Blood Count 5.38 x10^6/uL (3.50-5.40) Hemoglobin 12.6 g/dL (12.0-15.5) Hematocrit 37.9 % (36.0-47.0) Mean Corpuscular Volume 71 fL (79-100) L Mean Corpuscular Hemoglobin 23 pg (25-35) L Mean Corpuscular Hemoglobin Concent 33 g/dL (31-37) Red Cell Distribution Width 15.7 % (11.5-14.5) H Platelet Count 232 x10^3/uL (140-400) Neutrophils (%) (Auto) 46 % (31-73) Lymphocytes (%) (Auto) 44 % (24-48) Monocytes (%) (Auto) 7 % (0-9) Eosinophils (%) (Auto) 2 % (0-3) Basophils (%) (Auto) 2 % (0-3) Neutrophils # (Auto) 3.4 x10^3/uL (1.8-7.7) Lymphocytes # (Auto) 3.2 x10^3/uL (1.0-4.8) Monocytes # (Auto) 0.5 x10^3/uL (0.0-1.1) Eosinophils # (Auto) 0.1 x10^3/uL (0.0-0.7) Basophils # (Auto) 0.1 x10^3/uL (0.0-0.2) Sodium Level 139 mmol/L (136-145) Potassium Level 3.7 mmol/L (3.5-5.1) Chloride Level 103 mmol/L (98-107) Carbon Dioxide Level 26 mmol/L (21-32) Anion Gap 10 (6-14) Blood Urea Nitrogen 12 mg/dL (7-20) Creatinine 1.1 mg/dL (0.6-1.0) H Estimated GFR (Cockcroft-Gault) 60.9 BUN/Creatinine Ratio 11 (6-20) Glucose Level 96 mg/dL (70-99) Calcium Level 9.1 mg/dL (8.5-10.1) Magnesium Level 2.1 mg/dL (1.8-2.4) Total Bilirubin 1.3 mg/dL (0.2-1.0) H Aspartate Amino Transferase (AST) 18 U/L (15-37) Alanine Aminotransferase (ALT) 26 U/L (14-59) Alkaline Phosphatase 73 U/L (46-116) Troponin I Quantitative 0.026 ng/mL (0.000-0.055) PL-Jpa-A-Type Natriuretic Peptide 164 pg/mL (0-124) H Total Protein 7.3 g/dL (6.4-8.2) Albumin 3.7 g/dL (3.4-5.0) Albumin/Globulin Ratio 1.0 (1.0-1.7) Lipase 56 U/L (73-393) L Laboratory Tests 08/13/20 19:15 Laboratory Tests 08/13/20 19:15 EKG EKG [] Radiology/Procedures Radiology/Procedures [] Course & Med Decision Making Course & Med Decision Making Pertinent Labs and Imaging studies reviewed. (See chart for details) 60-year-old female complaining of nonspecific left anterior chest discomfort was most consistent with an acute muscle strain however there is concern for under lying etiology given the patient's significant comorbidities. Will obtain an ACS work-up and x-ray of the left ribs. 20:22 - XR negative. Labs unremarkable. Will discharge home. Dragon Disclaimer Dragon Disclaimer This electronic medical record was generated, in whole or in part, using a voice recognition dictation system. Departure Departure Impression: Primary Impression: Nonspecific chest pain Disposition: 01 DC HOME SELF CARE/HOMELESS Condition: GOOD Referrals: JESICA DE JESUS MD (PCP) Patient Instructions: Chest Pain (Nonspecific) Additional Instructions: EMERGENCY DEPARTMENT GENERAL DISCHARGE INSTRUCTIONS Thank you for coming to [facility] Emergency Department (ED) today and trusting us with you care. We trust that you had a positive experience in our Emergency Department. If you wish to speak to the department management, you may call the Director at [phone]. YOUR FOLLOW UP INSTRUCTIONS ARE FOLLOWS: 1. Do you have a private Doctor? If you do not have a private doctor, please ask for a resource list of physicians or clinics that may be able to assist you with follow up care. 2. The Emergency Physicain has interpreted your x-rays. The X-Ray specialist will also review them. If there is a change in the findings, you will be notified in 48 hours when at all possible. 3. A lab test or culture has been done, your results will be reviewed and you will be notified if you need a change in treatment. ADDITIONAL INSTRUCTIONS AND INFORMATION: 1. Your care today has been supervised by a physician who is specially trained in emergency care. Many problems require more than one evaluation for a complete diagnosis and treatment. We recommend that you schedule your follow up appointment as recommended to ensure complete treatment of you illness or injury. If you are unable to obtain follow up care and continue to have a problem, or if your condition worsens, we recommend that you return to the ED. 2. We are not able to safely determine your condition over the phone nor are we able to give sound medical advice over the phone. For these safety reasons, if you call for medical advice we will ask you to come to the ED for further evaluation. 3. If you have any questions regarding these discharge instructions please call the ED at [phone]. SAFETY INFORMATION: In the interest of safety, wellness, and injury prevention; we encourage you to wear your sealbelt, if you smoke; quite smoking, and we encourage family to use a protective helmet for bicycling and other sporting events that present an increased risk for head injury. IF YOUR SYMPTOMS WORSEN OR NEW SYMPTOMS DEVELOP, OR YOU HAVE CONCERNS ABOUT YOUR CONDITION; OR IF YOUR CONDITION WORSENS WHILE YOU ARE WAITING FOR YOUR FOLLOW UP APPOINTMENT; EITHER CONTACT YOUR PRIMARY CARE DOCTOR, THE PHYSICIAN WHOSE NAME AND NUMBER YOU WERE GIVEN, OR RETURN TO THE ED IMMEDIATELY. CARIN LIMON MD Aug 13, 2020 19:27
[2020-08-13 19:42] LABS: CALCIUM 9.1 mg/dL (8.5-10.1); CREATININE 1.1 mg/dL (0.6-1.0); GFR 60.9; POTASSIUM 3.7 mmol/L (3.5-5.1)
[2020-08-13 19:48] LABS: ALBUMIN 3.7 g/dL (3.4-5.0); MAGNESIUM 2.1 mg/dL (1.8-2.4); TOTAL BILIRUBIN 1.3 mg/dL (0.2-1.0); TOTAL PROTEIN 7.3 g/dL (6.4-8.2)
--- NOTE | 2020-08-13 20:19 | RAD ---
Ribs left with PA chest History: Pain PA view of the chest and dedicated views of the left ribs were obtained. The heart and pulmonary vessels appear normal. The lungs and pleural margins are clear. The visualized osseous structures appear intact. Impression: No acute findings. No evidence of a bony displaced rib fracture. Electronically signed by: Clinton Kennedy III, MD (08/13/2020 8:17 PM) [facility]
[2020-08-13] MEDS ORDERED: ACETAMINOPHEN 500 MG TABLET PO ONE (20:45)
[2020-08-13] MEDS ORDERED: IBUPROFEN 400 MG TABLET. PO ONE (20:45)
[2020-08-13 20:58] VITALS: BP 143/81
--- NOTE | 2020-08-14 02:49 | EKG ---
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
== END 2020-08-13 21:17 | disposition home or self-care (01) ==
LOC: ER 17:50
DX: R07.89 Other chest pain (principal); K21.9 Gastro-esophageal reflux disease without esophagitis; I10 Essential (primary) hypertension; I48.91 Unspecified atrial fibrillation; F41.9 Anxiety disorder, unspecified; Z88.0 Allergy status to penicillin; Z91.013 Allergy to seafood
CPT/HCPCS: 36415; 71101; 80053; 83690; 83735; 83880; 84484; 85025; 93005; 99285-25

== ENCOUNTER → 2020-08-16 | Outpatient (CLI) | payer OTHER ==
[2020-08-13 20:58] VITALS: BP 143/81
--- NOTE | 2020-08-16 17:15 | RAD ---
Examination: 1. Bilateral digital diagnostic mammogram. 2. Limited right breast ultrasound. INDICATION: 60-year-old woman presents for short-term follow-up probably benign findings in the right breast. She is also due for bilateral mammographic screening. Initially presented for right nipple d ischarge in 2019 which has not recurred since. COMPARISON: Right breast ultrasound of 05/20/2019 and bilateral digital diagnostic mammogram of 05/20. TECHNIQUE: CC and MLO views of both breasts were obtained and reviewed with computer-aided detection. Targeted ultrasound of the right breast in the area of previous sonographic interest focused on the inferior and lower outer quadrant and including sonographic survey of the right axilla. FINDINGS: Heterogeneously dense breast parenchyma. No developing mass, suspicious calcification or architectural distortion. Targeted ultrasound of the inferior and lower quadrant right breast where subtle nodularity initially seen on mammography and rare 3.7 mm hypoechoic fibrocystic lesion in the central right breast was se en shows no persistent sonographic abnormality. IMPRESSION: Negative bilateral digital diagnostic mammogram and targeted right breast ultrasound. No evidence of malignancy. BI-RADS Category 1 Negative Recommend return to routine screening next due in one year. Patient entered into a reminder system with targeted due date for next mammogram. Electronically signed by: Natalie Kiran MD (08/16/2020 5:13 PM) [id number]
== END ==
LOC: MAMMO 13:26
PROVIDERS: ATTEND Internal Medicine
DX: R92.2 Inconclusive mammogram (principal); N63.14 Unspecified lump in the right breast, lower inner quadrant
CPT/HCPCS: 76641; 77066

== ENCOUNTER 2020-09-17 02:46 | Emergency (ER) | payer OTHER ==
[~2020-09-17] VITALS: Ht 157.5 cm; Wt 79.5 kg
--- NOTE | 2020-09-17 03:45 | PHYS DOC ---
Past Medical History Past Medical History: A-Fib, Anxiety, GERD, Hypertension, P.U.D., UTI, Other Additional Past Medical Histor: DDD Past Surgical History: Other Additional Past Surgical Histo: D&C Smoking Status: Never Smoker Alcohol Use: Rarely Drug Use: None General Adult EDM: Chief Complaint: RIB PAIN HPI: HPI: Patient is a 60 year old -[place] female with history of peptic ulcer disease, degenerative joint disease, atrial fibrillation, hypertension, and anxiety presents for 1 month history of left anterior lateral ribs pressure. Patient's was in the ER 10 days ago for similar issue, and at that time no abnormality was found after CBC, CMP, ECG, and chest x-ray evaluation. She was discharged home. Patient had an outpatient appointment and hoping to get a CT scan evaluating her left rib pressure, but the request was denied by her insurance company. Today patient states that her rib discomfort localized at the region right below her left breast. The pressure in sensation can sometimes become sharp pain. Patient denies any alleviating factors, as well as aggravating factors. She denies associated symptoms either. She does not have any pain today. However, the pressuring sensation was constantly bothering her in her daily life. She denies fever, chills, chest pain, shortness of air, abdominal pain, change in bowel movement, change in urination. Patient is the main historian. Review of Systems: Review of Systems: Review of systems: Constitutional symptoms- No fever, no chills. Eyes- No Discharge, No Visual Loss Respiratory symptoms- No shortness of breath, No wheezing, No Dyspnea on Exertion Cardiovascular Systems; denies chest pain, No Palpitations, No syncope Gastrointestinal symptoms: NO abdominal pain, no nausea, no vomiting or diarrhea. Genitourinary symptoms: No dysuria. Musculoskeletal symptoms: Reports left anterior lateral rib pressure localized in the region below the left breast. No back pain endorse lower extremity degenerative disease of the joints as well as neuropathy. NEUROLOGICAL Symptoms: No headache, no generalized weakness; No focal Weakness Heart Score: C/O Chest Pain: No Risk Factors: Risk Factors: DM, Current or recent (<one month) smoker, HTN, HLP, family history of CAD, obesity. Risk Scores: Score 0 - 3: 2.5% MACE over next 6 weeks - Discharge Home Score 4 - 6: 20.3% MACE over next 6 weeks - Admit for Clinical Observation Score 7 - 10: 72.7% MACE over next 6 weeks - Early Invasive Strategies Allergies: Allergies: Allergies Coded Allergies Type Severity Reaction Last Updated Verified fish derived Allergy Severe Anaphylaxis 10/29/19 Yes shellfish derived Allergy Severe Anaphylaxis 10/29/19 Yes Penicillins Allergy Intermediate Rash 10/29/19 Yes Physical Exam: PE: General: alert, no acute distress. Skin: warm, dry and intact. Head:: Normocephalic, atraumatic. Neck: Trachea midline. Eyes: EOMI, Normal conjunctiva, No drainage CARDIOVASCULAR: Regular rate and rhythm RESPIRATORY: No respiratory distress Back: Full range of motion. MUSCULOSKELETAL: Left anterior lateral rib region has increased pressure upon pa lpation. GASTROINTESTINAL: Abdomen soft without rebound or guarding. NEUROLOGICAL: Alert and noted to person, place and time. No neurological deficits observed Psychiatric: Cooperative. Normal judgment EKG: EKG: EKG performed at 428 heart rate 64 first-degree AV block no ST elevation no ST depression no acute AL [] Radiology/Procedures: Radiology/Procedures: [] Impression: IMPRESSION: Several small subcentimeter noncalcified pulmonary nodules bilaterally. These likely represent granulomatous disease. Recommend follow-up according to Fleisc hner Society guidelines. Tiny 6.7 mm hypodense lesion in the left lobe of the liver possibly representing a small cyst or hemangioma. Electronically signed by: Marya Arreguin MD (09/17/2020 5:51 AM) [facility] Course & Med Decision Making: Course & Med Decision Making Pertinent Labs and Imaging studies reviewed. (See chart for details) [] Nilton Disclaimer: [place]ilton Disclaimer: This electronic medical record was generated, in whole or in part, using a voice recognition dictation system. Departure Departure Impression: Primary Impression: Chest wall pain Disposition: 01 DC HOME SELF CARE/HOMELESS Condition: STABLE Referrals: JESICA DE JESUS MD (PCP) Patient Instructions: Chest Wall Pain Scripts Hydrocodone/Acetaminophen (Hydrocodone-Acetamin 5-325 mg) 1 Each Tablet 1 EACH PO Q4-6HRS, #14 TAB Prov: ROJAS MARTINEZ DO 09/17/20 ROJAS MARTINEZ DO Sep 17, 2020 03:45
[2020-09-17 04:34] LABS: BASO # 0.1 x10^3/uL (0.0-0.2); BASO % 1 % (0-3); EOS # 0.1 x10^3/uL (0.0-0.7); EOS % 2 % (0-3); HEMATOCRIT 37.4 % (36.0-47.0); HEMOGLOBIN 12.3 g/dL (12.0-15.5); LYMPH % 37 % (24-48); MEAN CORPUSCULAR HEMOGLOBIN 23 pg (25-35); MEAN CORPUSCULAR HGB CONC 33 g/dL (31-37); MEAN CORPUSCULAR VOLUME 71 fL (79-100); MONO # 0.5 x10^3/uL (0.0-1.1); MONO % 9 % (0-9); NEUT # 2.7 x10^3/uL (1.8-7.7); NEUT % 50 % (31-73); PLATELET COUNT 215 x10^3/uL (140-400); RED BLOOD COUNT 5.29 x10^6/uL (3.50-5.40); WHITE BLOOD COUNT 5.3 x10^3/uL (4.0-11.0)
--- NOTE | 2020-09-17 04:44 | EKG ---
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
[2020-09-17 04:45] LABS: CALCIUM 8.4 mg/dL (8.5-10.1); CREATININE 1.1 mg/dL (0.6-1.0); GFR 60.9; POTASSIUM 4.1 mmol/L (3.5-5.1)
[2020-09-17 04:51] LABS: ALBUMIN 3.4 g/dL (3.4-5.0); ALBUMIN/GLOBULIN RATIO 0.9 (1.0-1.7); TOTAL BILIRUBIN 0.8 mg/dL (0.2-1.0); TOTAL PROTEIN 7.1 g/dL (6.4-8.2)
--- NOTE | 2020-09-17 05:54 | RAD ---
CT chest without contrast: Reason for examination: Left-sided chest pain. Helical images were obtained through the chest with no contrast administered. Reconstruction was perf ormed in sagittal and coronal planes. Exposure: One or more of the following individualized dose reduction techniques were utilized for thi s examination: 1. Automated exposure control 2. Adjustment of the mA and/or kV according to patient size 3. Use of iterative reconstruction technique. No gross abnormality seen at the thyroid gland. The trachea and mainstem bronchi show no intraluminal lesions. No abnormality seen at the esophagus. The thoracic aorta appears be normal in course and ca liber. The heart size appears to be normal with no pericardial effusion. The lung mishra show no cons olidated infiltrates, pleural effusions or pneumothorax. There is a tiny noncalcified pulmonary nodul e in the right upper lobe measuring 4 mm in size (series 2 image 27). There also is a small noncalcif ied pulmonary nodule peripherally in the left upper lobe measuring 3.2 mm in size (series 2 image 15 there also appears to be a 3 mm groundglass density nodule peripherally in the left lower lobe (serie s 2 image 41). These may represent granulomatous disease but recommend follow-up according to Fleisch ner Society guidelines. No acute bony abnormality seen in the thorax. There is a tiny hypodense lesion in the left lobe liver measuring approximately 6.7 mm in size which may represent a small cyst or hemangioma. No abnormality seen at the spleen, adrenal glands visualize d portions of the kidneys, pancreas or gallbladder. IMPRESSION: Several small subcentimeter noncalcified pulmonary nodules bilaterally. These likely represent granul omatous disease. Recommend follow-up according to Fleischner Society guidelines. Tiny 6.7 mm hypodense lesion in the left lobe of the liver possibly representing a small cyst or rowan ngioma. Electronically signed by: Marya Arreguin MD (09/17/2020 5:51 AM) [facility]IO
[2020-09-17] MEDS ORDERED: HYDR-2759 PO (05:56)
[2020-09-17 06:37] VITALS: BP 133/77
[2020-09-17 10:41] LABS: PLT ESTIMATE ADEQUATE (ADEQUATE)
[2020-09-17 10:42] LABS: MICROCYTOSIS PRESENT
== END 2020-09-17 06:40 | disposition home or self-care (01) ==
LOC: ER 02:46
DX: R07.89 Other chest pain (principal); R20.2 Paresthesia of skin; I48.20 Chronic atrial fibrillation, unspecified; F41.9 Anxiety disorder, unspecified; K21.9 Gastro-esophageal reflux disease without esophagitis; I10 Essential (primary) hypertension; Z98.890 Other specified postprocedural states; Z91.013 Allergy to seafood; Z88.0 Allergy status to penicillin
CPT/HCPCS: 36415; 71250; 80053; 84484; 85025; 93005; 99285

== ENCOUNTER → 2020-09-22 | Outpatient (CLI) | payer OTHER ==
[2020-09-17 06:37] VITALS: BP 133/77
[~2020-09-22] MED LIST changes: +HYDR-2759 PO
--- NOTE | 2020-09-22 08:33 | RAD ---
US ABDOMEN COMPLETE History: Abdominal pain Comparison: CT chest 09/17/2020, CT abdomen and pelvis 04/02/2018 Technique: Sonographic examination of the abdomen. Findings: Liver: The liver measures 15.2 cm. Liver echotexture is normal. At the margin of hepatic segment IVb , there is a homogeneously hyperechogenic round lesion measuring 2.6 cm diameter, in retrospect not s ignificantly changed from 2018. Hepatopetal flow in the portal vein. Gallbladder: No gallstones, wall thickening or pericholecystic fluid. Sonographic Sesay's sign is re portedly negative. Bile ducts: The common duct measures 6 mm. Pancreas: Partially visualized pancreas is unremarkable. The remainder of the pancreas is limited by bowel gas artifact. Right kidney: 10.1 cm in length. No focal lesion, calculi or hydronephrosis. Left kidney: 10.4 cm in length. No focal lesion, calculi or hydronephrosis. Spleen: 8.6 cm in length. No focal lesion. Aorta/IVC: Visualized portions are unremarkable. Other: No ascites. Impression: 1. Well-defined hyperechoic circumscribed mass left hepatic lobe measuring 2.6 cm which in retrospec t is likely not significantly changed from subtle 2018 CT finding. This most likely represents benign hepatic hemangioma. Recommend follow-up ultrasound in 6 months to confirm stability. Electronically signed by: Stefan Us MD (09/22/2020 8:31 AM) [facility]
== END ==
LOC: US 08:43
PROVIDERS: ATTEND Internal Medicine
DX: R16.0 Hepatomegaly, not elsewhere classified (principal)
CPT/HCPCS: 76700

== ENCOUNTER → 2021-01-25 | Outpatient (CLI) | payer OTHER ==
[2020-03-11 02:11] VITALS: BP_SYST 133
[2020-09-17 06:37] VITALS: BP_DIAS 77
--- NOTE | 2021-01-25 19:24 | CARD ---
MR#: [id number] Date of Study: 01/25/2021 Ordering Physician: MICHELLE GARCIA, Referring Physician: MICHELLE GARCIA Tech: Mena Anders [facility] APPROVED REPORT EXAM: Two-dimensional and M-mode echocardiogram with Doppler and color Doppler. Other Information Quality : GoodHR: 58bpm Rhythm : NSR INDICATION Palpitations RISK FACTORS Hypertension Obesity 2D DIMENSIONS RVDd3.5 (2.9-3.5cm)Left Atrium(2D)3.4 (1.6-4.0cm) IVSd0.9 (0.7-1.1cm)Aortic Root(2D)3.5 (2.0-3.7cm) LVDd5.1 (3.9-5.9cm)LVOT Diameter2.5 (1.8-2.4cm) PWd0.9 (0.7-1.1cm)LVDs3.0 (2.5-4.0cm) FS (%) 42.2 %SV90.4 ml Aortic Valve AoV Peak Shiva.119.5cm/sAoV VTI29.1cm AO Peak GR.5.7mmHgLVOT Peak Shiva.86.0cm/s AO Mean GR.3mmHgAVA (VMAX)3.49cm2 Mitral Valve MV E Iefwcezw49.5cm/sMV DECEL DGLT529ly MV A Siixfkco19.2cm/sE/A Ratio1.5 Pulmonary Valve PV Peak Qipcqcvl46.7cm/s Tricuspid Valve TR P. Rgtmoncg801na/sTR Peak Gr.24mmHg Pulmonary Vein S1 Xmqftzhu10.3cm/sD2 Gigwzlag04.0cm/s PVa [id number] LEFT VENTRICLE The left ventricle is normal size. There is normal left ventricular wall thickness. The left ventricu lar systolic function is normal. LV ejection fraction is 55 to 60%. There is normal LV segmental wall motion. The left ventricular diastolic function and filling is normal for age. RIGHT VENTRICLE The right ventricle is normal size. There is normal right ventricular wall thickness. The right ventr icular systolic function is normal. ATRIA The left atrium size is normal. The right atrium size is normal. The interatrial septum is intact wit h no evidence for an atrial septal defect or patent foramen ovale as noted on 2-D or Doppler imaging. AORTIC VALVE The aortic valve is normal in structure and function. Doppler and Color Flow revealed trace aortic re gurgitation. There is no significant aortic valvular stenosis. MITRAL VALVE The mitral valve is normal in structure and function. There is no evidence of mitral valve prolapse. There is no mitral valve stenosis. Doppler and Color-flow revealed mild mitral regurgitation. TRICUSPID VALVE The tricuspid valve is normal in structure and function. Doppler and Color Flow revealed mild tricusp id regurgitation. Estimated PAP 27 mmHg. There is no tricuspid valve stenosis. PULMONIC VALVE The pulmonary valve is normal in structure and function. Doppler and Color Flow revealed mild pulmoni c valvular regurgitation. GREAT VESSELS The aortic root is normal in size. The ascending aorta is normal in size. The IVC is normal in size a nd collapses >50% with inspiration. PERICARDIAL EFFUSION There is no evidence of significant pericardial effusion. Critical Notification Critical Value: No <Conclusion> The left ventricle is normal size. The left ventricular systolic function is normal. LV ejection fraction is 55 to 60%. Doppler and Color Flow revealed trace aortic regurgitation. There is no significant aortic valvular stenosis. Doppler and Color-flow revealed mild mitral regurgitation. Doppler and Color Flow revealed mild tricuspid regurgitation. Estimated PAP 27 mmHg. Signed by : Juan Luis Peraza MD Electronically Approved : 01/25/2021 19:24:21
== END ==
LOC: ECHO 13:52
PROVIDERS: ATTEND Internal Medicine Cardiovascular Disease
DX: I08.8 Other rheumatic multiple valve diseases (principal); I47.1 Supraventricular tachycardia
CPT/HCPCS: 93306

== ENCOUNTER 2021-02-13 07:25 | Emergency (ER) | payer OTHER ==
[~2021-02-13] VITALS: Ht 157.5 cm; Wt 80.0 kg
[~2021-02-13 07:25] MED LIST changes: -DOXY100C2 PO; +DOXY100C3 PO
--- NOTE | 2021-02-13 08:32 | PHYS DOC ---
Past Medical History Past Medical History: A-Fib, Anxiety, GERD, Hypertension, P.U.D., UTI, Other Additional Past Medical Histor: DDD Past Surgical History: Other Additional Past Surgical Histo: D&C Smoking Status: Never Smoker Alcohol Use: Rarely Drug Use: None General Adult EDM: Chief Complaint: HEADACHE HPI: HPI: Patient is a 60 year old HTN, A. fib who presents with sinus headache and p alpitations. Patient started having some sinus aching on Sunday. Occasionally has pains in her teeth and in her maxillary sinuses. No fevers or chills. Has had postnasal drip that is thick and green. Sinus pain is not more on one side than the other/asymmetric. This morning she took her home metoprolol and flecainide, and shortly after started to have a sensation of heart racing. She checked her heart rate and it was in the 90s. She checked her blood pressure and it was 130s systolic. This feeling has passed and she is now feeling essentially back to normal except for the sinus congestion. Review of Systems: Review of Systems: Constitutional: Denies fever or chills. [] Eyes: Denies change in visual acuity. [] HENT: + nasal and sinus congestion. [] Respiratory: Denies cough or shortness of breath. [] Cardiovascular: + palpitations. Denies chest pain or edema. [] GI: Denies abdominal pain, nausea, vomiting, bloody stools or diarrhea. [] : Denies dysuria. [] Musculoskeletal: Denies back pain or joint pain. [] Integument: Denies rash. [] Neurologic: +lightheadedness. Denies headache, focal weakness or sensory changes. [] Endocrine: Denies polyuria or polydipsia. [] Lymphatic: Denies swollen glands. [] Psychiatric: Denies depression or anxiety. [] Heart Score: C/O Chest Pain: No Risk Factors: Risk Factors: DM, Current or recent (<one month) smoker, HTN, HLP, family history of CAD, obesity. Risk Scores: Score 0 - 3: 2.5% MACE over next 6 weeks - Discharge Home Score 4 - 6: 20.3% MACE over next 6 weeks - Admit for Clinical Observation Score 7 - 10: 72.7% MACE over next 6 weeks - Early Invasive Strategies Family History: Family History: No pertinent family history of Allergies: Allergies: Allergies Coded Allergies Type Severity Reaction Last Updated Verified fish derived Allergy Severe Anaphylaxis 10/29/19 Yes shellfish derived Allergy Severe Anaphylaxis 10/29/19 Yes Penicillins Allergy Intermediate Rash 10/29/19 Yes Physical Exam: PE: Constitutional: Well developed, well nourished, no acute distress, non-toxic appearance. [] HENT: Mild posterior oropharynx edema. No maxillary or frontal sinus tenderness to percussion. [] Eyes: PERRLA, EOMI, conjunctiva normal, no discharge. [] Neck: Normal range of motion, no tenderness, supple, no stridor. [] Cardiovascular:Heart rate regular rhythm, no murmur [] Lungs & Thorax: Bilateral breath sounds clear to auscultation. Normal work of breathing. [] Abdomen: Bowel sounds normal, soft, no tenderness, no masses, no pulsatile masses. [] Skin: Warm, dry, no erythema, no rash. [] Back: No tenderness, no CVA tenderness. [] Extremities: No tenderness, no cyanosis, no clubbing, ROM intact, no edema. [] Neurologic: Alert and oriented X 3, normal motor function, normal sensory function, no focal deficits noted. [] Psychologic: Affect normal, judgement normal, mood normal. [] EKG: EKG: Sinus rhythm. Rate 78. SD 178, QRS 96, QTc 453. Left axis deviation/LAFB. No acute ischemic changes. [] Radiology/Procedures: Radiology/Procedures: [] Course & Med Decision Making: Course & Med Decision Making Pertinent Labs and Imaging studies reviewed. (See chart for details) Patient is 60-year-old female with history of atrial fibrillation on flecainide and metoprolol at home who presents with several days of sinus congestion, and a brief episode of palpitations this morning. No LOC. No chest pain. No ischemic changes on EKG. Intervals are normal. Telemetry thus far is normal in the ED. No evidence of bacterial infection for sinus congestion, on day 4, will not prescribe antibiotics for sinus infection today. We will check CBC and electrolytes to ensure no electrolyte abnormality that could have predisposed to an arrhythmia. Arrhythmia seems less likely given that her heart rate was 93 while she was experiencing her heart palpitations at home. If work-up is unremarkable feel she will be safe for discharge with PCP follow- up. Nilton Disclaimer: Nilton Disclaimer: This electronic medical record was generated, in whole or in part, using a voice recognition dictation system. Departure Departure Impression: Primary Impression: Palpitations Additional Impression: Sinusitis Disposition: HOME / SELF CARE / HOMELESS Condition: STABLE Referrals: JESICA DE JESUS MD (PCP) Schedule a follow up appointment this week. Additional Instructions: Your work-up is reassuring today.Your magnesium was slightly low, you can take a multivitamin or magnesium supplements to help with this. If you develop recurrent symptoms, new symptoms such as chest pain, shortness of breath, fever/chills, or any other new/concerning symptoms please return to the emergency department for reevaluation. Otherwise, please schedule a follow up with your PCP. TEJ MARSH MD Feb 13, 2021 08:32
[2021-02-13 08:50] LABS: BASO # 0.1 x10^3/uL (0.0-0.2); BASO % 1 % (0-3); EOS % 0 % (0-3); HEMOGLOBIN 12.1 g/dL (12.0-15.5); LYMPH # 0.8 x10^3/uL (1.0-4.8); LYMPH % 19 % (24-48); MEAN CORPUSCULAR HEMOGLOBIN 23 pg (25-35); MEAN CORPUSCULAR HGB CONC 33 g/dL (31-37); MEAN CORPUSCULAR VOLUME 71 fL (79-100); MONO # 0.5 x10^3/uL (0.0-1.1); MONO % 12 % (0-9); NEUT # 3.1 x10^3/uL (1.8-7.7); NEUT % 69 % (31-73); PLATELET COUNT 152 x10^3/uL (140-400); RED BLOOD COUNT 5.22 x10^6/uL (3.50-5.40); WHITE BLOOD COUNT 4.5 x10^3/uL (4.0-11.0)
[2021-02-13 08:59] LABS: CREATININE 1.1 mg/dL (0.6-1.0); GFR 60.9; POTASSIUM 3.5 mmol/L (3.5-5.1)
[2021-02-13 09:04] LABS: ALBUMIN 3.3 g/dL (3.4-5.0); ALBUMIN/GLOBULIN RATIO 0.9 (1.0-1.7); MAGNESIUM 1.5 mg/dL (1.8-2.4); TOTAL BILIRUBIN 0.4 mg/dL (0.2-1.0)
[2021-02-13 10:00] VITALS: BP 142/74
--- NOTE | 2021-02-13 10:25 | EKG ---
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
[2021-02-13 11:36] LABS: ANISOCYTOSIS PRESENT; HYPOCHROMIA SLIGHT; MICROCYTOSIS MOD; PLT ESTIMATE ADEQUATE (ADEQUATE)
--- NOTE | 2021-02-14 15:48 | NUR ---
IP: Informed pt of positive covid test and the need to quarantine for 10 days. Pt verbalized understanding.
== END 2021-02-13 10:12 | disposition home or self-care (01) ==
LOC: ER 07:25
DX: U07.1 COVID-19 (principal); J32.9 Chronic sinusitis, unspecified; R00.2 Palpitations; I48.91 Unspecified atrial fibrillation; K21.9 Gastro-esophageal reflux disease without esophagitis; I10 Essential (primary) hypertension; Z88.0 Allergy status to penicillin; Z91.013 Allergy to seafood
CPT/HCPCS: 36415; 80053; 83735; 85025; 93005; 99284; U0003; U0005; 99283

== ENCOUNTER 2021-04-02 13:12 | Inpatient (IN) | payer OTHER ==
[~2021-04-02] VITALS: Ht 157.5 cm; Wt 80.0 kg
[2021-04-02 13:38] LABS: BILIRUBIN,URINE NEGATIVE (NEG); CLARITY,URINE CLEAR; COLOR,URINE YELLOW; NITRITE,URINE NEGATIVE (NEG); PH,URINE 6.5 (<5.0-8.0); PROTEIN,URINE NEGATIVE (NEG-TRACE); UROBILINOGEN,URINE 0.2 mg/dL (0.2 mg/dL)
--- NOTE | 2021-04-02 13:47 | ED.ADGEN ---
Past Medical History Past Medical History: A-Fib, Anxiety, GERD, Hypertension, P.U.D., UTI, Other Additional Past Medical Histor: DDD Past Surgical History: Other Additional Past Surgical Histo: D&C Smoking Status: Never Smoker Alcohol Use: None Drug Use: None General Adult EDM: Chief Complaint: RAPID HEART RATE HPI: HPI: Patient is a 60 year old female coming in via EMS for palpitations and racing heart rate. Patient states she has a history of paroxysmal atrial fibrillation but has not had an episode in approximately 19 to 20 months. Is currently on metoprolol. Denies any chest pain, lightheadedness, diaphoresis, nausea or other symptoms. Patient states she just gone to the grocery store is bringing groceries in when the symptoms started. Patient tried sitting her couch but the palpitations did not go away. She takes an 81 mg aspirin daily but denies any other anticoagulant. Denies any caffeine, alcohol use, denies any tobacco or drug use. Patient states she otherwise been well. Has not gotten her COVID-19 vaccines Review of Systems: Review of Systems: Constitutional: Denies fever or chills. [] Eyes: Denies change in visual acuity. [] HENT: Denies nasal congestion or sore throat. [] Respiratory: Denies cough or shortness of breath. [] Cardiovascular: Denies chest pain or edema. [] GI: Denies abdominal pain, nausea, vomiting, bloody stools or diarrhea. [] : Denies dysuria. [] Musculoskeletal: Denies back pain or joint pain. [] Integument: Denies rash. [] Neurologic: Denies headache, focal weakness or sensory changes. [] Endocrine: Denies polyuria or polydipsia. [] Lymphatic: Denies swollen glands. [] Psychiatric: Denies depression or anxiety. [] Current Medications: Current Medications Medications (Trade) Dose Ordered Sig/Willy Start Time Stop Time Status Last Admin Dose Admin Amiodarone HCl 150 mg/Dextrose 103 ml @ 600 mls/hr 1X ONCE 04/02/21 15:00 04/02/21 15:10 DC 04/02/21 15:39 600 MLS/HR Amiodarone HCl 450 mg/Dextrose 259 ml @ 33 mls/hr CONT PRN 04/02/21 15:00 04/03/21 14:59 04/02/21 15:40 33 MLS/HR Diltiazem HCl (Cardizem Iv Push) 10 mg 1X ONCE 04/02/21 14:45 04/02/21 14:48 DC 04/02/21 15:38 10 MG Diltiazem HCl 125 mg/Sodium Chloride 125 ml @ 5 mls/hr CONT PRN 04/02/21 14:30 04/02/21 15:40 5 MLS/HR Heparin Sodium (Porcine) (Heparin Sodium) 2,000 unit PRN Q6HRS PRN 04/02/21 14:45 Heparin Sodium/ Dextrose 250 ml @ 9.6 mls/hr CONT PRN 04/02/21 14:45 04/02/21 16:04 9.6 MLS/HR Allergies: Allergies: Allergies Coded Allergies Type Severity Reaction Last Updated Verified fish derived Allergy Severe Anaphylaxis 10/29/19 Yes shellfish derived Allergy Severe Anaphylaxis 10/29/19 Yes Penicillins Allergy Intermediate Rash 10/29/19 Yes Physical Exam: PE: Constitutional: Well developed, well nourished, no acute distress, non-toxic appearance. [] HENT: Normocephalic, atraumatic, bilateral external ears normal, oropharynx moist, no oral exudates, nose normal. [] Eyes: PERRLA, EOMI, conjunctiva normal, no discharge. [] Neck: Normal range of motion, no tenderness, supple, no stridor. [] Cardiovascular:Heart rate regular rhythm, no murmur [] Lungs & Thorax: Bilateral breath sounds clear to auscultation [] Abdomen: Bowel sounds normal, soft, no tenderness, no masses, no pulsatile masses. [] Skin: Warm, dry, no erythema, no rash. [] Back: No tenderness, no CVA tenderness. [] Extremities: No tenderness, no cyanosis, no clubbing, ROM intact, no edema. [] Neurologic: Alert and oriented X 3, normal motor function, normal sensory function, no focal deficits noted. [] Psychologic: Affect normal, judgement normal, mood normal. [] Current Patient Data: Labs: Laboratory Tests Test 04/02/21 13:20 04/02/21 13:54 Urine Collection Type Unknown Urine Color Yellow Urine Clarity Clear Urine pH 6.5 (<5.0-8.0) Urine Specific [place] <=1.005 (1.000-1.030) Urine Protein Negative mg/dL (NEG-TRACE) Urine Glucose (UA) Negative mg/dL (NEG) Urine Ketones (Stick) Negative mg/dL (NEG) Urine Blood Trace (NEG) Urine Nitrite Negative (NEG) Urine Bilirubin Negative (NEG) Urine Urobilinogen Dipstick 0.2 mg/dL (0.2 mg/dL) Urine Leukocyte Esterase Negative (NEG) Urine RBC 1-2 /HPF (0-2) Urine WBC Occ /HPF (0-4) Urine Squamous Epithelial Cells Few /LPF Urine Bacteria Few /HPF (0-FEW) White Blood Count 6.6 x10^3/uL (4.0-11.0) Red Blood Count 5.33 x10^6/uL (3.50-5.40) Hemoglobin 12.3 g/dL (12.0-15.5) Hematocrit 38.4 % (36.0-47.0) Mean Corpuscular Volume 72 fL (79-100) L Mean Corpuscular Hemoglobin 23 pg (25-35) L Mean Corpuscular Hemoglobin Concent 32 g/dL (31-37) Red Cell Distribution Width 17.7 % (11.5-14.5) H Platelet Count 232 x10^3/uL (140-400) Neutrophils (%) (Auto) 48 % (31-73) Lymphocytes (%) (Auto) 40 % (24-48) Monocytes (%) (Auto) 7 % (0-9) Eosinophils (%) (Auto) 3 % (0-3) Basophils (%) (Auto) 1 % (0-3) Neutrophils # (Auto) 3.2 x10^3/uL (1.8-7.7) Lymphocytes # (Auto) 2.7 x10^3/uL (1.0-4.8) Monocytes # (Auto) 0.5 x10^3/uL (0.0-1.1) Eosinophils # (Auto) 0.2 x10^3/uL (0.0-0.7) Basophils # (Auto) 0.1 x10^3/uL (0.0-0.2) Prothrombin Time 12.4 SEC (11.7-14.0) Prothrombin Time INR 0.9 (0.8-1.1) Sodium Level 141 mmol/L (136-145) Potassium Level 3.2 mmol/L (3.5-5.1) L Chloride Level 104 mmol/L (98-107) Carbon Dioxide Level 26 mmol/L (21-32) Anion Gap 11 (6-14) Blood Urea Nitrogen 11 mg/dL (7-20) Creatinine 1.0 mg/dL (0.6-1.0) Estimated GFR (Cockcroft-Gault) 68.0 BUN/Creatinine Ratio 11 (6-20) Glucose Level 109 mg/dL (70-99) H Calcium Level 9.1 mg/dL (8.5-10.1) Phosphorus Level 3.0 mg/dL (2.6-4.7) Magnesium Level 1.9 mg/dL (1.8-2.4) Total Bilirubin 1.1 mg/dL (0.2-1.0) H Aspartate Amino Transferase (AST) 16 U/L (15-37) Alanine Aminotransferase (ALT) 21 U/L (14-59) Alkaline Phosphatase 74 U/L (46-116) Troponin I Quantitative 0.024 ng/mL (0.000-0.055) FD-Zfm-U-Type Natriuretic Peptide 193 pg/mL (0-124) H Total Protein 7.8 g/dL (6.4-8.2) Albumin 3.9 g/dL (3.4-5.0) Albumin/Globulin Ratio 1.0 (1.0-1.7) SARS-CoV-2 Antigen (Rapid) Negative (NEGATIVE) Laboratory Tests 04/02/21 13:54 Laboratory Tests 04/02/21 13:54 Vital Signs: Vital Signs Date Time Temp Pulse Resp B/P (MAP) Pulse Ox O2 Delivery O2 Flow Rate FiO2 04/02/21 13:12 98.3 144 18 135/92 (106) 99 Room Air 98.3 EKG: EKG: Atrial fibrillation with heart rate of 139 bpm, left axis deviation, no ST elevation or depression [] Heart Score: C/O Chest Pain: No HEART Score for Chest Pain: HEART Score for Chest Pain Response (Comments) Value History Slighlty/Non-Suspicious 0 ECG Nonspecific Repolarizatio 1 Age >45 - < 65 1 Troponin < Normal Limit 0 Total 2 Risk Factors: Risk Factors: DM, Current or recent (<one month) smoker, HTN, HLP, family histo ry of CAD, obesity. Risk Scores: Score 0 - 3: 2.5% MACE over next 6 weeks - Discharge Home Score 4 - 6: 20.3% MACE over next 6 weeks - Admit for Clinical Observation Score 7 - 10: 72.7% MACE over next 6 weeks - Early Invasive Strategies Radiology/Procedures: Radiology/Procedures: [facility] [address] [place] [address] IMAGING REPORT Signed PATIENT: NEHEMIAH ROSENTHAL ACCOUNT: [id number] : 1960 LOCATION: ER AGE: 60 SEX: F EXAM STATUS: PRE ER ORD. PHYSICIAN: YARY WITT MD REASON: afib PROCEDURE: CHEST AP ONLY INDICATION: Reason: afib / Spl. Instructions: / History: COMPARISON: August 2020 FINDINGS: Single view of chest obtained. Cardiomediastinal silhouette is near upper limits of normal in size. Some mild limitation at the left lung base secondary to the overlying cardiac silhouette obscuring. No definite focal airspace consolidation. IMPRESSION: * No focal airspace consolidation. Electronically signed by: Fina Fernandez MD (04/02/2021 1:51 PM) [id number] DICTATED and SIGNED BY: FINA FERNANDEZ MD DATE: 04/02/21 [id number] [] Course & Med Decision Making: Course & Med Decision Making Pertinent Labs and Imaging studies reviewed. (See chart for details) Consult to Dr. Neftaly Villasenor who is patient's drier unloader. Recommend switching to a calcium channel sushil and amiodarone for rate and rhythm control with heparin due to failure of her home medications admitted to Dr. Zuluaga. Patient's heart rate stabilized and she converted to sinus rhythm after drip initiated [] Dragon Disclaimer: Dragon Disclaimer: This electronic medical record was generated, in whole or in part, using a voice recognition dictation system. Departure Departure Impression: Primary Impression: Atrial fibrillation with RVR Admitting Physician: Sadie Zuluaga Condition: IMPROVED Referrals: JESICA DE JESUS MD (PCP) YARY WITT MD Apr 02, 2021 13:47
[2021-04-02 13:50] LABS: BACTERIA,URINE FEW /HPF (0-FEW); WBC,URINE OCC /HPF (0-4)
--- NOTE | 2021-04-02 13:53 | RAD ---
INDICATION: Reason: afib / Spl. Instructions: / History: COMPARISON: August 2020 FINDINGS: Single view of chest obtained. Cardiomediastinal silhouette is near upper limits of normal in size. Some mild limitation at the left lung base secondary to the overlying cardiac silhouette obscuring. N o definite focal airspace consolidation. IMPRESSION: * No focal airspace consolidation. Electronically signed by: Min Linder MD (04/02/2021 1:51 PM) [id number]
[2021-04-02 14:17] LABS: BASO # 0.1 x10^3/uL (0.0-0.2); BASO % 1 % (0-3); EOS # 0.2 x10^3/uL (0.0-0.7); EOS % 3 % (0-3); HEMATOCRIT 38.4 % (36.0-47.0); HEMOGLOBIN 12.3 g/dL (12.0-15.5); LYMPH # 2.7 x10^3/uL (1.0-4.8); LYMPH % 40 % (24-48); MEAN CORPUSCULAR HEMOGLOBIN 23 pg (25-35); MEAN CORPUSCULAR HGB CONC 32 g/dL (31-37); MEAN CORPUSCULAR VOLUME 72 fL (79-100); MONO # 0.5 x10^3/uL (0.0-1.1); MONO % 7 % (0-9); NEUT # 3.2 x10^3/uL (1.8-7.7); NEUT % 48 % (31-73); PLATELET COUNT 232 x10^3/uL (140-400); RED BLOOD COUNT 5.33 x10^6/uL (3.50-5.40); RED CELL DISTRIBUTION WIDTH 17.7 % (11.5-14.5); WHITE BLOOD COUNT 6.6 x10^3/uL (4.0-11.0)
[2021-04-02 14:21] LABS: CALCIUM 9.1 mg/dL (8.5-10.1); POTASSIUM 3.2 mmol/L (3.5-5.1)
[2021-04-02 14:22] LABS: PROTHROMBIN TIME PATIENT 12.4 SEC (11.7-14.0)
[2021-04-02 14:27] LABS: ALBUMIN 3.9 g/dL (3.4-5.0); MAGNESIUM 1.9 mg/dL (1.8-2.4); TOTAL BILIRUBIN 1.1 mg/dL (0.2-1.0); TOTAL PROTEIN 7.8 g/dL (6.4-8.2)
--- NOTE | 2021-04-02 14:30 | EKG ---
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
[2021-04-02] MEDS ORDERED: HEPARIN for IV BOLUS 10,000 UNIT/10 ML VIAL. IV ONE (14:45)
[2021-04-02] MEDS ORDERED: HEPARIN 25,000UTS/250ML PREMIX 250 ML IV PRN (14:45)
[2021-04-02] MEDS ORDERED: HEPARIN for IV BOLUS 10,000 UNIT/10 ML VIAL. IV PRN (14:45)
[2021-04-02] MEDS ORDERED: AMIODARONE 150 MG in IV DEXTROSE 5% 100ML 100 ML IV ONE (15:00)
[2021-04-02] MEDS ORDERED: ACETAMINOPHEN 325 MG TABLET. PO PRN (15:30)
[2021-04-02] MEDS ORDERED: ONDANSETRON PF 4 MG/2 ML VIAL. IVP PRN (15:30)
[2021-04-02] MEDS ORDERED: fentaNYL PF VIAL 100 MCG/2 ML VIAL IVP PRN (15:30)
[2021-04-02] MEDS: AMIODARONE 450 MG in IV DEXTROSE 5% 250 ML IV PRN (15:40)
[2021-04-02 19:45] VITALS: BP 120/71
[2021-04-02] MEDS ORDERED: METO25TA4 PO (20:59)
[2021-04-02] MEDS ORDERED: OMEP40CA7 PO (21:00)
[2021-04-02 23:00] VITALS: BP 113/68
[2021-04-03] MEDS: AMIODARONE 450 MG in IV DEXTROSE 5% 250 ML IV PRN (02:15)
[2021-04-03 04:00] VITALS: BP 128/67
[2021-04-03 05:35] LABS: BASO # 0.1 x10^3/uL (0.0-0.2); BASO % 1 % (0-3); EOS # 0.1 x10^3/uL (0.0-0.7); EOS % 2 % (0-3); HEMATOCRIT 35.6 % (36.0-47.0); HEMOGLOBIN 11.4 g/dL (12.0-15.5); LYMPH # 2.2 x10^3/uL (1.0-4.8); LYMPH % 46 % (24-48); MEAN CORPUSCULAR HEMOGLOBIN 23 pg (25-35); MEAN CORPUSCULAR HGB CONC 32 g/dL (31-37); MEAN CORPUSCULAR VOLUME 72 fL (79-100); MONO # 0.4 x10^3/uL (0.0-1.1); MONO % 9 % (0-9); NEUT % 42 % (31-73); PLATELET COUNT 224 x10^3/uL (140-400); RED BLOOD COUNT 4.93 x10^6/uL (3.50-5.40); RED CELL DISTRIBUTION WIDTH 17.6 % (11.5-14.5); WHITE BLOOD COUNT 4.8 x10^3/uL (4.0-11.0)
[2021-04-03 05:53] LABS: ALBUMIN 3.4 g/dL (3.4-5.0); CALCIUM 8.4 mg/dL (8.5-10.1); CREATININE 0.9 mg/dL (0.6-1.0); GFR 76.8; POTASSIUM 3.5 mmol/L (3.5-5.1); TOTAL BILIRUBIN 1.6 mg/dL (0.2-1.0); TOTAL PROTEIN 6.7 g/dL (6.4-8.2)
[2021-04-03 07:00] VITALS: BP 115/64
[2021-04-03 11:00] VITALS: BP 120/72
[2021-04-03] MEDS: FLUTICASONE 50MCG/NASAL SPRAY 16GM BOTTLE. NS SCH (11:00)
[2021-04-03] MEDS ORDERED: POTASSIUM CHLORIDE 20 MEQ TABLET.ER. PO ONE (11:30)
[2021-04-03] MEDS: ALPRAZolam 0.25 MG TABLET PO SCH (11:30)
[2021-04-03] MEDS: APIXABAN 5 MG TABLET. PO SCH ×2 (11:30→20:43)
[2021-04-03] MEDS: ASPIRIN CHEWABLE 81 MG TABLET. PO SCH (11:30)
[2021-04-03] MEDS: METOPROLOL TART IMMED RELEASE 25 MG TABLET. PO SCH ×2 (11:31→20:44)
[2021-04-03] MEDS: PANTOPRAZOLE 40 MG TABLET.DR. PO SCH (11:31)
--- NOTE | 2021-04-03 11:31 | PDOC ---
Provider Note Date of Service: DATE: 04/03/21 TIME: 11:30 Provider Note Pt seen in ICU , H&P dictated.#[id number]. Justifications for Admission Other Justification JESICA DE JESUS MD Apr 03, 2021 11:31
[2021-04-03] MEDS: HYDROcodone/APAP 5/325MG 1 TAB TABLET PO SCH ×3 (11:41→20:44)
--- NOTE | 2021-04-03 11:47 | EKG ---
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
--- NOTE | 2021-04-03 12:05 | PDOC2 ---
CONSULT Date of Consult Date of Consult DATE: 04/03/21 TIME: 12:04 Reason for Consult Reason for Consult: Atrial fibrillation Referring Physician Referring Physician: Dr. Barraza Identification/Chief Complaint Chief Complaint Palpitations Source Source: Chart review, Patient History of Present Illness Reason for Visit: 60-year-old female with history of paroxysmal atrial fibrillation and paroxysmal SVT on flecainide for antiarrhythmic therapy presented with palpitations. She was found to be in atrial fibrillation with RVR and was started on amiodarone and heparin infusions per protocol. She converted to sinus rhythm overnight. She denied any chest pain, orthopnea/PND or syncope. Past Medical History Past Medical History Paroxysmal atrial fibrillation Paroxysmal SVT Anxiety GERD Past Surgical History Past Surgical History D&C Family History Family History Cardiomyopathy Social History Social History Patient denied any smoking, alcohol or drug use Current Problem List Problem List Problems Medical Problems: (1) Atrial fibrillation with RVR Status: Acute Current Medications Current Medications Current Medications Diltiazem HCl 125 mg/Sodium Chloride 125 ml @ 5 mls/hr 1X ONCE IV ; Start 04/02/21 at 14:15; Stop 04/03/21 at 15:14; Status UNV Diltiazem HCl 125 mg/Sodium Chloride 125 ml @ 5 mls/hr CONT PRN IV PER PROTOCOL Last administered on 04/02/21at 15:40; Start 04/02/21 at 14:30 Amiodarone HCl 150 mg/Dextrose 103 ml @ 600 mls/hr 1X ONCE IV Last administered on 04/02/21at 15:39; Start 04/02/21 at 15:00; Stop 04/02/21 at 15:10; Status DC Amiodarone HCl 450 mg/Dextrose 259 ml @ 33 mls/hr CONT PRN IV SEE I/O RECORD Last administered on 04/03/21at 02:15; Start 04/02/21 at 15:00; Stop 04/03/21 at 14:59 Diltiazem HCl (Cardizem Iv Push) 10 mg 1X ONCE IVP Last administered on 04/02/21at 15:38; Start 04/02/21 at 14:45; Stop 04/02/21 at 14:48; Status DC Heparin Sodium (Porcine) (Heparin Sodium) 4,000 unit 1X ONCE IV Last administered on 04/02/21at 16:02; Start 04/02/21 at 14:45; Stop 04/03/21 at 11:11; Status DC Heparin Sodium/ Dextrose 250 ml @ 9.6 mls/hr CONT PRN IV PER PROTOCOL Last administered on 04/02/21at 16:04; Start 04/02/21 at 14:45; Stop 04/03/21 at 11:11; Status DC Heparin Sodium (Porcine) (Heparin Sodium) 2,000 unit PRN Q6HRS PRN IV FOR UFH LEVEL LESS THAN 0.2; Start 04/02/21 at 14:45; Stop 04/03/21 at 11:11; Status DC Ondansetron HCl (Zofran) 4 mg PRN Q8HRS PRN IVP NAUSEA/VOMITING; Start 04/02/21 at 15:30; Stop 04/03/21 at 15:29 Fentanyl Citrate (Fentanyl 2ml Vial) 50 mcg PRN Q1HR PRN IVP PAIN; Start 04/02/21 at 15:30; Stop 04/03/21 at 15:29 Acetaminophen (Tylenol) 650 mg PRN Q4HRS PRN PO FEVER > 100.3'F; Start 04/02/21 at 15:30; Stop 04/03/21 at 15:29 Alprazolam (Xanax) 0.25 mg DAILY PO Last administered on 04/03/21at 11:30; Start 04/03/21 at 11:00 Aspirin (Aspirin Chewable) 81 mg DAILY PO Last administered on 04/03/21at 11:30; Start 04/03/21 at 11:00 Fluticasone Propionate (Flonase) 2 spray DAILY NS ; Start 04/03/21 at 11:00 Acetaminophen/ Hydrocodone Bitart (Lortab 5/325) 1 tab QID PO ; Start 04/03/21 at 13:00 Metoprolol Tartrate (Lopressor) 12.5 mg BID PO Last administered on 04/03/21at 11:31; Start 04/03/21 at 11:00 Pantoprazole Sodium (Protonix) 40 mg DAILYAC PO Last administered on 04/03/21at 11:31; Start 04/03/21 at 11:00 Apixaban (Eliquis) 5 mg BID PO Last administered on 04/03/21at 11:30; Start 04/03/21 at 12:00 Potassium Chloride (Klor-Con) 40 meq 1X ONCE PO Last administered on 04/03/21at 11:42; Start 04/03/21 at 11:30; Stop 04/03/21 at 11:37; Status DC Active Scripts Active Hydrocodone-Acetamin 5-325 mg (Hydrocodone/Acetaminophen) 1 Each Tablet 1 Each PO Q4-6HRS Doxycycline Hyclate 100 Mg Capsule 1 Cap PO BID Medrol (Methylprednisolone) 4 Mg Tab.ds.pk 1 Pkg PO UD Reported Omeprazole 40 Mg Capsule.dr 1 Cap PO DAILY Metoprolol Tartrate 25 Mg Tablet 0.5 Tab PO BID Flecainide Acetate 100 Mg Tablet 1 Tab PO BID Claritin-D 24 Hour Tablet (Loratadine/Pseudoephedrine) 1 Each Tab.er.24h 1 Tab PO DAILY 10 Days Fluticasone Propionate Nasal [place] (Fluticasone Propionate) 16 Gm Trimble.susp 2 [place]imble NS DAILY Tramadol Hcl 50 Mg Tablet 50 Mg PO Q6HRS PRN Percocet 5-325 Mg Tablet (Oxycodone/Acetaminophen) 1 Each Tablet 1-2 Tab PO Q4-6HRS Xanax (Alprazolam) 0.25 Mg Tablet 1 Tab PO DAILY Aspirin 81 Mg Tab.chew 81 Mg PO DAILY Allergies Allergies: Coded Allergies: fish derived (Verified Allergy, Severe, Anaphylaxis, 10/29/19) SEAFOOD shellfish derived (Verified Allergy, Severe, Anaphylaxis, 10/29/19) SEAFOOD Penicillins (Verified Allergy, Intermediate, Rash, 10/29/19) ROS PSYCHOLOGICAL ROS: No: Hallucinations Eyes: No Loss of vision HEENT: No: Epistaxis Respiratory: No: Hemoptysis Cardiovascular: yes Palpitations; No Chest Pain Gastrointestinal: No Vomiting, No Diarrhea Genitourinary: No Hematuria Neurological: No Seizures Skin: No Rash Physical Exam General: Alert, Oriented X3 HEENT: Atraumatic Lungs: Clear to auscultation Heart: Regular rate Abdomen: Soft Extremities: No edema Neuro: Normal speech Psych/Mental Status: Mood NL Vitals VITALS Vital Signs Date Time Temp Pulse Resp B/P (MAP) Pulse Ox O2 Delivery O2 Flow Rate FiO2 04/03/21 11:31 63 120/72 04/03/21 11:00 97.8 16 100 Room Air 97.8 Labs Labs Laboratory Tests Test 04/02/21 13:20 04/02/21 13:54 04/02/21 21:55 04/03/21 05:15 Urine Collection Type Unknown Urine Color Yellow Urine Clarity Clear Urine pH 6.5 (<5.0-8.0) Urine Specific [place] <=1.005 (1.000-1.030) Urine Protein Negative mg/dL (NEG-TRACE) Urine Glucose (UA) Negative mg/dL (NEG) Urine Ketones (Stick) Negative mg/dL (NEG) Urine Blood Trace (NEG) Urine Nitrite Negative (NEG) Urine Bilirubin Negative (NEG) Urine Urobilinogen Dipstick 0.2 mg/dL (0.2 mg/dL) Urine Leukocyte Esterase Negative (NEG) Urine RBC 1-2 /HPF (0-2) Urine WBC Occ /HPF (0-4) Urine Squamous Epithelial Cells Few /LPF Urine Bacteria Few /HPF (0-FEW) White Blood Count 6.6 x10^3/uL (4.0-11.0) 4.8 x10^3/uL (4.0-11.0) Red Blood Count 5.33 x10^6/uL (3.50-5.40) 4.93 x10^6/uL (3.50-5.40) Hemoglobin 12.3 g/dL (12.0-15.5) 11.4 g/dL (12.0-15.5) Hematocrit 38.4 % (36.0-47.0) 35.6 % (36.0-47.0) Mean Corpuscular Volume 72 fL (79-100) 72 fL (79-100) Mean Corpuscular Hemoglobin 23 pg (25-35) 23 pg (25-35) Mean Corpuscular Hemoglobin Concent 32 g/dL (31-37) 32 g/dL (31-37) Red Cell Distribution Width 17.7 % (11.5-14.5) 17.6 % (11.5-14.5) Platelet Count 232 x10^3/uL (140-400) 224 x10^3/uL (140-400) Neutrophils (%) (Auto) 48 % (31-73) 42 % (31-73) Lymphocytes (%) (Auto) 40 % (24-48) 46 % (24-48) Monocytes (%) (Auto) 7 % (0-9) 9 % (0-9) Eosinophils (%) (Auto) 3 % (0-3) 2 % (0-3) Basophils (%) (Auto) 1 % (0-3) 1 % (0-3) Neutrophils # (Auto) 3.2 x10^3/uL (1.8-7.7) 2.0 x10^3/uL (1.8-7.7) Lymphocytes # (Auto) 2.7 x10^3/uL (1.0-4.8) 2.2 x10^3/uL (1.0-4.8) Monocytes # (Auto) 0.5 x10^3/uL (0.0-1.1) 0.4 x10^3/uL (0.0-1.1) Eosinophils # (Auto) 0.2 x10^3/uL (0.0-0.7) 0.1 x10^3/uL (0.0-0.7) Basophils # (Auto) 0.1 x10^3/uL (0.0-0.2) 0.1 x10^3/uL (0.0-0.2) Prothrombin Time 12.4 SEC (11.7-14.0) Prothromb Time International Ratio 0.9 (0.8-1.1) Sodium Level 141 mmol/L (136-145) 140 mmol/L (136-145) Potassium Level 3.2 mmol/L (3.5-5.1) 3.5 mmol/L (3.5-5.1) Chloride Level 104 mmol/L (98-107) 105 mmol/L (98-107) Carbon Dioxide Level 26 mmol/L (21-32) 28 mmol/L (21-32) Anion Gap 11 (6-14) 7 (6-14) Blood Urea Nitrogen 11 mg/dL (7-20) 10 mg/dL (7-20) Creatinine 1.0 mg/dL (0.6-1.0) 0.9 mg/dL (0.6-1.0) Estimated GFR (Cockcroft-Gault) 68.0 76.8 BUN/Creatinine Ratio 11 (6-20) 11 (6-20) Glucose Level 109 mg/dL (70-99) 101 mg/dL (70-99) Calcium Level 9.1 mg/dL (8.5-10.1) 8.4 mg/dL (8.5-10.1) Phosphorus Level 3.0 mg/dL (2.6-4.7) Magnesium Level 1.9 mg/dL (1.8-2.4) Total Bilirubin 1.1 mg/dL (0.2-1.0) 1.6 mg/dL (0.2-1.0) Aspartate Amino Transf (AST/SGOT) 16 U/L (15-37) 15 U/L (15-37) Alanine Aminotransferase (ALT/SGPT) 21 U/L (14-59) 23 U/L (14-59) Alkaline Phosphatase 74 U/L (46-116) 67 U/L (46-116) Troponin I Quantitative 0.024 ng/mL (0.000-0.055) 0.145 ng/mL (0.000-0.055) LH-Voq-N-Type Natriuretic Peptide 193 pg/mL (0-124) Total Protein 7.8 g/dL (6.4-8.2) 6.7 g/dL (6.4-8.2) Albumin 3.9 g/dL (3.4-5.0) 3.4 g/dL (3.4-5.0) Albumin/Globulin Ratio 1.0 (1.0-1.7) 1.0 (1.0-1.7) SARS-CoV-2 RNA (NATALY) Negative (Negative) SARS-CoV-2 Antigen (Rapid) Negative (NEGATIVE) Heparin Anti-Xa Act, Unfractionated 0.56 IU/mL (0.30-0.70) 0.47 IU/mL (0.30-0.70) Triglycerides Level 30 mg/dL (0-150) Cholesterol Level 193 mg/dL (0-200) LDL Cholesterol, Calculated 92 mg/dL (0-100) VLDL Cholesterol, Calculated 6 mg/dL (0-40) Non-HDL Cholesterol Calculated 98 mg/dL (0-129) HDL Cholesterol 95 mg/dL (40-60) Cholesterol/HDL Ratio 2.0 Thyroid Stimulating Hormone (TSH) 2.424 uIU/mL (0.358-3.74) Laboratory Tests Test 04/02/21 13:20 04/02/21 13:54 10/2/21 21:55 04/03/21 05:15 Urine Collection Type Unknown Urine Color Yellow Urine Clarity Clear Urine pH 6.5 (<5.0-8.0) Urine Specific [place] <=1.005 (1.000-1.030) Urine Protein Negative mg/dL (NEG-TRACE) Urine Glucose (UA) Negative mg/dL (NEG) Urine Ketones (Stick) Negative mg/dL (NEG) Urine Blood Trace (NEG) Urine Nitrite Negative (NEG) Urine Bilirubin Negative (NEG) Urine Urobilinogen Dipstick 0.2 mg/dL (0.2 mg/dL) Urine Leukocyte Esterase Negative (NEG) Urine RBC 1-2 /HPF (0-2) Urine WBC Occ /HPF (0-4) Urine Squamous Epithelial Cells Few /LPF Urine Bacteria Few /HPF (0-FEW) White Blood Count 6.6 x10^3/uL (4.0-11.0) 4.8 x10^3/uL (4.0-11.0) Red Blood Count 5.33 x10^6/uL (3.50-5.40) 4.93 x10^6/uL (3.50-5.40) Hemoglobin 12.3 g/dL (12.0-15.5) 11.4 g/dL (12.0-15.5) Hematocrit 38.4 % (36.0-47.0) 35.6 % (36.0-47.0) Mean Corpuscular Volume 72 fL (79-100) 72 fL (79-100) Mean Corpuscular Hemoglobin 23 pg (25-35) 23 pg (25-35) Mean Corpuscular Hemoglobin Concent 32 g/dL (31-37) 32 g/dL (31-37) Red Cell Distribution Width 17.7 % (11.5-14.5) 17.6 % (11.5-14.5) Platelet Count 232 x10^3/uL (140-400) 224 x10^3/uL (140-400) Neutrophils (%) (Auto) 48 % (31-73) 42 % (31-73) Lymphocytes (%) (Auto) 40 % (24-48) 46 % (24-48) Monocytes (%) (Auto) 7 % (0-9) 9 % (0-9) Eosinophils (%) (Auto) 3 % (0-3) 2 % (0-3) Basophils (%) (Auto) 1 % (0-3) 1 % (0-3) Neutrophils # (Auto) 3.2 x10^3/uL (1.8-7.7) 2.0 x10^3/uL (1.8-7.7) Lymphocytes # (Auto) 2.7 x10^3/uL (1.0-4.8) 2.2 x10^3/uL (1.0-4.8) Monocytes # (Auto) 0.5 x10^3/uL (0.0-1.1) 0.4 x10^3/uL (0.0-1.1) Eosinophils # (Auto) 0.2 x10^3/uL (0.0-0.7) 0.1 x10^3/uL (0.0-0.7) Basophils # (Auto) 0.1 x10^3/uL (0.0-0.2) 0.1 x10^3/uL (0.0-0.2) Prothrombin Time 12.4 SEC (11.7-14.0) Prothromb Time International Ratio 0.9 (0.8-1.1) Sodium Level 141 mmol/L (136-145) 140 mmol/L (136-145) Potassium Level 3.2 mmol/L (3.5-5.1) 3.5 mmol/L (3.5-5.1) Chloride Level 104 mmol/L (98-107) 105 mmol/L (98-107) Carbon Dioxide Level 26 mmol/L (21-32) 28 mmol/L (21-32) Anion Gap 11 (6-14) 7 (6-14) Blood Urea Nitrogen 11 mg/dL (7-20) 10 mg/dL (7-20) Creatinine 1.0 mg/dL (0.6-1.0) 0.9 mg/dL (0.6-1.0) Estimated GFR (Cockcroft-Gault) 68.0 76.8 BUN/Creatinine Ratio 11 (6-20) 11 (6-20) Glucose Level 109 mg/dL (70-99) 101 mg/dL (70-99) Calcium Level 9.1 mg/dL (8.5-10.1) 8.4 mg/dL (8.5-10.1) Phosphorus Level 3.0 mg/dL (2.6-4.7) Magnesium Level 1.9 mg/dL (1.8-2.4) Total Bilirubin 1.1 mg/dL (0.2-1.0) 1.6 mg/dL (0.2-1.0) Aspartate Amino Transf (AST/SGOT) 16 U/L (15-37) 15 U/L (15-37) Alanine Aminotransferase (ALT/SGPT) 21 U/L (14-59) 23 U/L (14-59) Alkaline Phosphatase 74 U/L (46-116) 67 U/L (46-116) Troponin I Quantitative 0.024 ng/mL (0.000-0.055) 0.145 ng/mL (0.000-0.055) EZ-Dmf-A-Type Natriuretic Peptide 193 pg/mL (0-124) Total Protein 7.8 g/dL (6.4-8.2) 6.7 g/dL (6.4-8.2) Albumin 3.9 g/dL (3.4-5.0) 3.4 g/dL (3.4-5.0) Albumin/Globulin Ratio 1.0 (1.0-1.7) 1.0 (1.0-1.7) SARS-CoV-2 RNA (NATALY) Negative (Negative) SARS-CoV-2 Antigen (Rapid) Negative (NEGATIVE) Heparin Anti-Xa Act, Unfractionated 0.56 IU/mL (0.30-0.70) 0.47 IU/mL (0.30-0.70) Triglycerides Level 30 mg/dL (0-150) Cholesterol Level 193 mg/dL (0-200) LDL Cholesterol, Calculated 92 mg/dL (0-100) VLDL Cholesterol, Calculated 6 mg/dL (0-40) Non-HDL Cholesterol Calculated 98 mg/dL (0-129) HDL Cholesterol 95 mg/dL (40-60) Cholesterol/HDL Ratio 2.0 Thyroid Stimulating Hormone (TSH) 2.424 uIU/mL (0.358-3.74) Assessment/Plan Assessment/Plan 1. Atrial fibrillation with RVR in the patient with known history of paroxysmal atrial fibrillation. She is back in sinus rhythm. Since she failed antiarrhythmic therapy with flecainide, we started amiodarone per protocol for rhythm maintenance. Stop heparin infusion and start Eliquis for stroke prophylaxis. Plan for event monitor recording as an outpatient to assess AF burden. Recent 2D echo in December 2020 showed LVEF 55 to 60%. Cardiac catheteriz ation in October 2015 did not show any significant coronary artery disease. 2. PSVT: No further episodes 3. Slight troponin elevation, most probably type II/demand ischemia. Patient is chest pain-free and cardiac catheterization in the past did not show any significant CAD. Okay for DC later today once amiodarone infusion is completed. Follow-up with our office in 1 month. MICHELLE GARCIA MD Apr 03, 2021 12:05
[2021-04-03 15:00] VITALS: BP 113/61
--- NOTE | 2021-04-03 15:04 | HP ---
ADMIT DATE: 04/02/2021 REASON FOR ADMISSION TO THE HOSPITAL: Palpitations, AFib with RVR. HISTORY OF PRESENT ILLNESS: The patient is a 60-year-old female who has a history of anxiety, atrial fibrillation. She is on flecainide. She also has history of hypertension, GERD, peptic ulcer disease. She was having palpitations, heart beating fast, came to the Emergency Room and she was found to have AFib with RVR and the patient was started on amiodarone and heparin. Cardiology was consulted. Denies any chest pain and shortness of breath. PAST MEDICAL HISTORY: As mentioned, has a history of AFib, hypertension, GERD, anxiety, peptic ulcer disease. PAST SURGICAL HISTORY: D and C. PERSONAL HISTORY: Denies smoking, alcohol, drug abuse. ALLERGIES: PENICILLINS, SHELLFISH, FISH. SHE HAS SEVERE ANAPHYLACTIC REACTIONS. MEDICATIONS: At home, she was on oxycodone, tramadol, flecainide 100 mg twice a day, loratadine 10 mg, Xanax 0.25, aspirin 81 mg daily, Flonase daily, metoprolol 25 mg, she takes half a tablet twice a day, omeprazole 40 mg daily. REVIEW OF SYMPTOMS: Complains of anxiety, has some palpitations. No chest pain. Rest of the 14-system was reviewed and negative. No shortness of breath. PHYSICAL EXAMINATION: GENERAL: The patient is a pleasant, not in any distress. VITAL SIGNS: At the time of admission shows a temperature 98, pulse 150, respirations 18, blood pressure 140/95. HEENT: Head is atraumatic. Pupils equal. Oral cavity, no congestion. NECK: Supple. Thyroid not enlarged. JVD not elevated. CHEST: Symmetrical. CARDIOVASCULAR: S1, S2. No murmurs. Irregular. LUNGS: Clear to auscultation. No wheezing. ABDOMEN: Soft, bowel sounds present. No mass palpable. EXTERNAL GENITALIA: No [place]. RECTUM: Deferred. EXTREMITIES: No calf tenderness, no edema. NEUROLOGIC: Moving all extremities. No focal deficits noted. LABORATORY DATA: Shows a white count of 6, hemoglobin 12, platelets 232. Electrolytes show sodium 141, potassium 3.2, chloride 104, bicarbonate 26, BUN 11, creatinine 1.0, glucose 109, magnesium 1.9, bilirubin 1.1. BNP 193. Troponin 0.024, went up to o.124. Thyroid was normal 2.4. Cholesterol 193, LDL 92, HDL 95. Urine is negative. COVID negative. Chest x-ray negative. EKG: AFib with RVR. No acute ischemic changes. FINAL IMPRESSION: 1. Atrial fibrillation with rapid ventricular response. The patient was given IV Cardizem, amiodarone drip and heparin drip. 2. History of atrial fibrillation. The patient was on flecainide. 3. Hypertension. 4. Anxiety. 5. SEVERE ALLERGY TO SHELLFISH, PENICILLIN, ANAPHYLACTIC REACTION. PLAN: At this time, was admit to hospital. As mentioned, was started on Cardizem IV, amiodarone drip and heparin drip and the patient is going to transition from flecainide to amiodarone and Eliquis for anticoagulation and able to be discharged hopefully tomorrow. ERIBERTO/TEDDY/KIM DR: ERIBERTO/angie TID: [id number] MTDD
[2021-04-03] MEDS: AMIODARONE HCL 200 MG TABLET. PO SCH (18:17)
[2021-04-03] MEDS ORDERED: AMIO200T6 PO (18:56)
[2021-04-03] MEDS ORDERED: APIX5TAB PO (18:56)
[2021-04-03 19:39] VITALS: BP 120/68
[2021-04-03 22:44] VITALS: BP 138/84
[2021-04-04 02:59] VITALS: BP 122/75
[2021-04-04 07:00] VITALS: BP 137/76
[2021-04-04] MEDS: FLUTICASONE 50MCG/NASAL SPRAY 16GM BOTTLE. NS SCH (08:32)
[2021-04-04] MEDS: PANTOPRAZOLE 40 MG TABLET.DR. PO SCH (08:34)
[2021-04-04] MEDS: APIXABAN 5 MG TABLET. PO SCH (08:34)
[2021-04-04] MEDS: ALPRAZolam 0.25 MG TABLET PO SCH (08:34)
[2021-04-04] MEDS: ASPIRIN CHEWABLE 81 MG TABLET. PO SCH (08:34)
[2021-04-04 08:36] VITALS: BP 137/76
[2021-04-04] MEDS: AMIODARONE HCL 200 MG TABLET. PO SCH (08:36)
[2021-04-04] MEDS: METOPROLOL TART IMMED RELEASE 25 MG TABLET. PO SCH (08:36)
[2021-04-04] MEDS: HYDROcodone/APAP 5/325MG 1 TAB TABLET PO SCH (09:00)
--- NOTE | 2021-04-04 09:25 | PDOC ---
PROGRESS NOTES Date of Service: DATE: 04/04/21 TIME: 09:23 Subjective Subjective feeling good Objective Objective Vital Signs Date Time Temp Pulse Resp B/P (MAP) Pulse Ox O2 Delivery O2 Flow Rate FiO2 04/04/21 08:36 68 137/76 04/04/21 07:00 97.9 18 97 Room Air 97.9 Intake and Output 04/04/21 07:00 Intake Total 560 ml Output Total 350 ml Balance 210 ml Intake Oral 560 ml Output Urine Total 350 ml # Voids 1 Physical Exam Abdomen: Soft Heart: Regular rate Extremities: No edema General: Alert, Oriented X3 HEENT: Atraumatic Lungs: Clear to auscultation Neuro: Normal speech Psych/Mental Status: Mood NL Diagnosis Problem List Problems Medical Problems: (1) Atrial fibrillation with RVR Status: Acute Assessment Assessment Problems Medical Problems: (1) Atrial fibrillation with RVR Status: Acute FINAL IMPRESSION: 1. Atrial fibrillation with rapid ventricular response. The patient was given IV Cardizem, amiodarone drip and heparin drip. 2. History of atrial fibrillation. The patient was on flecainide. 3. Hypertension. 4. Anxiety. 5. SEVERE ALLERGY TO SHELLFISH, PENICILLIN, ANAPHYLACTIC REACTION. PLAN: NSR , HR 80 d/c home today eliquis amiodarone labs stable spoke with cardiology . At this time, was admit to hospital. As mentioned, was started on Cardizem IV, amiodarone drip and heparin drip and the patient is going to transition from flecainide to amiodarone and Eliquis for anticoagulation and able to be discharged hopefully tomorrow. Plan Plan of Care Problems Medical Problems: (1) Atrial fibrillation with RVR Status: Acute Comment Review of Relevant I have reviewed the following items lenore (where applicable) has been applied. Medications Current Medications Acetaminophen/ Hydrocodone Bitart (Lortab 5/325) 1 tab QID PO ; Start 04/03/21 at 13:00 Alprazolam (Xanax) 0.25 mg DAILY PO Last administered on 04/04/21at 08:34; Start 04/03/21 at 11:00 Amiodarone HCl (Cordarone) 200 mg DAILY PO Last administered on 04/04/21at 08:36; Start 04/03/21 at 16:00 Apixaban (Eliquis) 5 mg BID PO Last administered on 04/04/21at 08:34; Start 04/03/21 at 12:00 Aspirin (Aspirin Chewable) 81 mg DAILY PO Last administered on 04/04/21at 08:34; Start 04/03/21 at 11:00 Fluticasone Propionate (Flonase) 2 spray DAILY NS ; Start 04/03/21 at 11:00 Metoprolol Tartrate (Lopressor) 12.5 mg BID PO Last administered on 04/04/21at 08:36; Start 04/03/21 at 11:00 Pantoprazole Sodium (Protonix) 40 mg DAILYAC PO Last administered on 04/04/21at 08:34; Start 04/03/21 at 11:00 Potassium Chloride (Klor-Con) 40 meq 1X ONCE PO Last administered on 04/03/21at 11:42; Start 04/03/21 at 11:30; Stop 04/03/21 at 11:37; Status DC Vitals/I & O Vital Sign - Last 24 Hours 04/03/21 04/03/21 04/03/21 04/03/21 11:00 11:31 14:30 15:00 Temp 97.8 97.3 97.8 97.3 Pulse 63 63 63 Resp 16 16 B/P (MAP) 120/72 (88) 120/72 113/61 (78) Pulse Ox 100 96 O2 Delivery Room Air Room Air Room Air 04/03/21 04/03/21 04/03/21 04/03/21 18:17 19:39 19:54 20:44 Temp 98.7 98.7 Pulse 63 70 70 Resp 18 B/P (MAP) 113/61 120/68 (85) 120/68 Pulse Ox 98 O2 Delivery Room Air Room Air 04/03/21 04/04/21 04/04/21 04/04/21 22:44 02:59 07:00 08:36 Temp 98.5 98.2 97.9 98.5 98.2 97.9 Pulse 59 63 68 68 Resp 16 18 18 B/P (MAP) 138/84 (102) 122/75 (91) 137/76 (96) 137/76 Pulse Ox 100 98 97 O2 Delivery Room Air Room Air Room Air 04/04/21 08:36 Pulse 68 B/P (MAP) 137/76 Intake and Output 04/03/21 04/03/21 04/04/21 15:00 23:00 07:00 Intake Total 180 ml 380 ml 0 ml Output Total 200 ml 150 ml Balance -20 ml 230 ml 0 ml Justifications for Admission Other Justification JESICA DE JESUS MD Apr 04, 2021 09:25
--- NOTE | 2021-04-04 09:59 | NUR ---
SS following for discharge planning. SS reviewed pt chart and discussed with pt RN. Pt is from home with spouse and is currently on room air. COVID19 negative. Discharge order on the chart for home with self care.
--- NOTE | 2021-04-04 12:28 | PDOC ---
RUSTAM TOWNSEND APRN 04/04/21 1228: CARDIO Progress Notes Date and Time Date of Service 04/04/21 Time of Evaluation 1220 Subjective Subjective: No Chest Pain, No shortness of breath, No Palpitations Vitals Vitals Vital Signs Date Time Temp Pulse Resp B/P (MAP) Pulse Ox O2 Delivery O2 Flow Rate FiO2 04/04/21 08:36 68 137/76 04/04/21 08:00 Room Air 04/04/21 07:00 97.9 18 97 97.9 Weight Weight [ ] Input and Output Intake and Output Intake and Output 04/04/21 06:59 Intake Total 560 ml Output Total 350 ml Balance 210 ml Intake Oral 560 ml Output Urine Total 350 ml # Voids 1 Physical Exam HEENT: Neck Supple W Full Motion Chest: Symmetric LUNGS: Clear to Auscultation Heart: RRR Abdomen: Soft N/T Extremities: No Edema Neurology: alert, oriented, follow commands Assessment Assessment 1. PAFIB presenting with RVR; converted back to SER. Since she failed antiarrhythmic therapy with flecainide, amiodarone was initiated. Eliquis for stroke prophylaxis. Plan for event monitor recording as an outpatient to assess AF burden. Recent 2D echo in December 2020 showed LVEF 55 to 60%. Cardiac catheterization in October 2015 did not show any significant coronary artery disease. 2. PSVT: No further episodes 3. Slight troponin elevation, most probably type II/demand ischemia. Patient is chest pain-free and cardiac catheterization in the past did not show any significant CAD. Justicifation of Admission Dx: Justifications for Admission: Justification of Admission Dx: N/A MICHELLE GARCIA MD 04/04/21 1946: CARDIO Progress Notes Assessment Assessment Patient seen and examined. Agree with FLOOR WINDER's assessment and plan. PAF presently maintaining SR with amiodarone Continue eliquis for stroke prophylaxis for now Plan outpatient event monitor and ischemic evaluation RUSTAM TOWNSEND APRN Apr 04, 2021 12:28 IMCHELLE GARCIA MD Apr 04, 2021 19:46
--- NOTE | 2021-04-04 12:40 | NUR ---
Discharge Note: [facility] Discharge instructions and discharge home medications reviewed with Patient and a copy given. All questions have been answered and understanding verbalized. The following instructions and handouts were given: Amiodarone tablets, eliquis, Afib RVR Discontinued lines and drains: Peripheral IV intact. Patient discharged to Home or Self Care with Family Member via Wheelchair
== END 2021-04-04 12:40 | disposition home or self-care (01) | DRG 310 ==
LOC: ER 13:12 → ED HOLD 15:00 → 6 SOUTH 16:26 → 1 WEST ICU 20:47 → 6 SOUTH 04-03 14:15
PROVIDERS: ADMIT Internal Medicine; ATTEND Internal Medicine
DX: I48.91 Unspecified atrial fibrillation (principal); F41.9 Anxiety disorder, unspecified; I10 Essential (primary) hypertension; I48.0 Paroxysmal atrial fibrillation; Z79.01 Long term (current) use of anticoagulants; Z79.82 Long term (current) use of aspirin; Z87.11 Personal history of peptic ulcer disease; Z91.013 Allergy to seafood; K21.9 Gastro-esophageal reflux disease without esophagitis; I47.1 Supraventricular tachycardia; Z88.2 Allergy status to sulfonamides; Z88.0 Allergy status to penicillin; Z88.8 Allergy status to other drugs, medicaments and biological substances
CPT/HCPCS: 36415; 71045; 80053; 80061; 81001; 83735; 83880; 84100; 84443; 84484; 85025; 85520; 85610; 87426; 93005; 96365; 96368; 96376; J0282; J1644; J3490; J7060; U0003; U0005; 99285-25; G0378

== ENCOUNTER → 2021-05-23 | Outpatient (CLI) | payer OTHER ==
[~2021-05-23] MED LIST changes: +AMIO200T53 PO; +APIX5TAB PO; +CYCL10TA19 PO; -CYCL10TA2 PO; +DICY20TA PO; -DICY20TA3 PO; +METO25TA4 PO; +OMEP40CA7 PO
--- NOTE | 2021-05-23 11:04 | CARD ---
MR#: [id number] Date of Study: 05/23/2021 Ordering Physician: MICHELLE CERNA, Referring Physician: MICHELLE CERNA, Tech: APPROVED REPORT PROCEDURE: Successful implantation of [employer] reveal Linq loop recorder INDICATIONS: Atrial fibrillation, to guide antiarrhythmic and anticoagulation therapies PROCEDURE DETAILS: An informed consent was obtained from patient. Patient was brought to the procedure suite and her le ft chest and shoulder were prepped and draped in the usual fashion. 20 mL of 2% lidocaine was infilt rated into the skin and subcutaneous tissues for local anesthesia. An incision was made in the left third intercostal space 1 inch from midsternal line and using the introducer provided with the kit a track was created in subcutaneous tissue. Subsequently, with the help of the introducer and the prio r provided with the kit, a [employer] reveal Linq loop recorder serial number [id number] was placed i n the subcutaneous tissue. Hemostasis was secured. Patient tolerated the procedure well. There wer e no immediate complications. At the end of procedure, the device showed sensing amplitude of 0.5 mV . CONCLUSION: Successful implantation of [employer] reveal Linq loop recorder to guide atrial fibrillation managemen t Signed by : Michelle Cerna, Electronically Approved : 05/23/2021 11:03:40
== END | disposition home or self-care (01) ==
LOC: LINQ 10:15
PROVIDERS: ATTEND Internal Medicine Cardiovascular Disease
DX: I48.91 Unspecified atrial fibrillation (principal); J45.909 Unspecified asthma, uncomplicated; M19.90 Unspecified osteoarthritis, unspecified site; F41.9 Anxiety disorder, unspecified; Z87.891 Personal history of nicotine dependence; Z88.0 Allergy status to penicillin; Z91.013 Allergy to seafood; Z88.8 Allergy status to other drugs, medicaments and biological substances; Z79.82 Long term (current) use of aspirin; Z79.899 Other long term (current) drug therapy
CPT/HCPCS: 33285; C1764

== ENCOUNTER → 2021-08-10 | Outpatient (CLI) | payer OTHER ==
[~2021-08-10] MED LIST changes: +REGADENOSON 0.4 MG/5 ML DISP.SYRIN. IV ONE
--- NOTE | 2021-08-10 18:00 | RAD ---
MR#: [id number] Date of Study: 08/10/2021 Ordering Physician: MICHELLE GARCIA, Referring Physician: FLEX SCHOFIELD Tech: RT Maria Elena (R) (N) APPROVED REPORT Test Type: Pharmacological Stress Nurse/Tech: Elen Zepeda RN Test Indications: Paroxysmal A-fib Cardiac History: Hypertension,loop recorder Medications: See Electronic Medical Record Medical History: See Electronic Medical Record Resting ECG: SR with PVCs Resting Heart Rate: 71 bpm Resting Blood Pressure: 124/76mmHg Pretest Chest Pain: No chest pain Nurse/Tech Notes S1,S2 and lungs clear to auscultation. Consent: The procedure was explained to the patient in lay terms. Informed consent was witnessed. Woody eout was entered into [employer]. History and Stress Test performed by RT Maria Elena (R) (N) Pharm. Details Pharmacologic stress testing was performed using 0.4mg per 5ml of regadenoson given intravenously ove r 7-10 seconds. Stress Symptoms Dyspnea POST EXERCISE Reason for Termination: Infusion complete Target HR: Yes Max HR: 140 bpm Max Blood Pressure: 141/77mmHg Blood Pressure response to exercise: Normal blood pressure response during stress. Heart Rate response to exercise: WNL Chest Pain: No. Arrhythmia: Yes. PVCs ST Change: No. INTERPRETATION Stress EKG Conclusion: The resting EKG showed a sinus rhythm with a prolonged QT of interval and nons pecific ST-T wave changes. The stress EKG showed no significant changes from baseline. No EKG evidence of stress-induced ischemia. Imaging Protocol IMAGE PROTOCOL: Rest Tc-99m/stress Tc-99m 1 day Rest: Stress: Viability: Radiopharm.Tc99m [id number] Sestamibi Dose10.3mCi 31mCi Duration 15min. 10min. Img Date 08/10/2021 08/10/2021 Inj-Img [id number]. 60min. Rest Admin Site:IV - Right AntecubitalAdministrator:DMITRI Spear, ARRT (R)(N) Stress Admin Site: IV - Right AntecubitalAdministrator: Bonny Strickland, NMTCB, ARRT (R)(N) STRESS DATA End Diast. Vol.99.0mlAv. Heart Rate69.0bpm End Syst. Vol.10.0mlCO Index BSA6.2L/min Myocardial Gzsw417.0gEject. Axikipqe13.0% Stress Rates Pk. Fill Rate3.22EDV/secLVtime Pk. Fill 128.70msec Pk. Empty Rate3.98ESV/secLVtime Pk. Bjjpk914.49msec 07/04 Pk. Fill2.10EDV/sec Stress Scores Regional WT0.00Summed WT0.00 Regional WM0.00Summed WM0.00 LV Perfusion The stress scans showed no significant defects. The rest scans showed no significant defects. Nuclear imaging shows no reversible ischemia or infarct. Wall Motion Intact LV systolic function with an ejection fraction of greater than 75%. LV Perf. Quant 17 Seg. SSS1.00 17 Seg. SRS4.00 17 Seg. SDS1.00 Stress Defect Extent (% LAD)0.00Rest Defect Extent (% LAD)7.50Rev. Defect Extent (% LAD)0.00 Stress Defect Extent (% LCX) 0.00Rest Defect Extent (% LCX)15.00Rev. Defect Extent (% LCX)0.00 Stress Defect Extent (% RCA)0.00Rest Defect Extent (% RCA)10.00Rev. Defect Extent (% RCA)0.00 Stress Defect Extent (% GUS)0.00Rest Defect Extent (% GUS)12.20Rev. Defect Extent (% GUS)0.00 Conclusion 1. Baseline abnormal EKG but no EKG evidence of stress-induced ischemia. 2. Nuclear imaging shows no reversible ischemia or infarct. 3. Normal left ventricular systolic function with an ejection fraction of greater than 75%. 4. Moderately low to low risk Lexiscan nuclear stress test. Signed by : Juan Luis Peraza MD Electronically Approved : 08/10/2021 18:00:16
== END ==
LOC: NM 08:37
PROVIDERS: ATTEND Internal Medicine Cardiovascular Disease
DX: R94.31 Abnormal electrocardiogram [ECG] [EKG] (principal); I48.0 Paroxysmal atrial fibrillation
CPT/HCPCS: 78452; 93017; A9500; J2785